=== PATIENT | female | born 1935 | race Caucasian/White ===

== ENCOUNTER 2017-04-08 20:36 | Emergency (ER) | payer OTHER ==
[~2017-04-08] VITALS: Ht 162.6 cm; Wt 67.5 kg
[~2017-04-08 20:36] MED LIST: ASPEC325 PO; CALC-258 PO; CARV25TA2 PO; CLB200 PO; DIGO0.1216 PO; DIGO0.1267 PO; FURO20TA PO; HYDR-5688 PO; LEVO25TA PO; LOSA50TA6 PO; LPT/40 PO; MESA0.37 PO; POTA1TAB97 PO; SNK PO
[2017-04-08 20:48] VITALS: TEMP 36.9; Ht 162.6 cm; Wt 67.5 kg
[2017-04-08] MEDS ORDERED: DOXY100C41 PO (22:20)
[2017-04-08] MEDS ORDERED: DOXYCYCLINE HYCLATE 100 MG CAP PO STA (22:22)
--- NOTE | 2017-04-08 22:22 | EMERGENCY ROOM VISIT NOTE ---
History Report prepared by Blu: Zulma Henely Under the Supervision of: Dr. Kayden Walsh D.O. First contact with patient: 21:48 Chief Complaint: RASH Stated Complaint: HIVES ON BOTH ARMS History of Present Illness The patient is a 81 year old female who presents to the Emergency Room with complaints of a constant rash beginning today. The patient states that she has red spots on both of her arms near her elbows. She notes that she had a tick on her arm two days ago and her dug it out of her arm as it was stuck. She reports that it was there for 30 minutes. She complains of itchiness. She denies any fleas at home, pets, and new medication. Source of History: patient Onset: today Position: arm (bilateral) Quality: other (rash) Timing: constant Note: Pt has itchiness. Review of Systems See HPI for pertinent positives & negatives. A total of 10 systems reviewed and were otherwise negative. Past Medical & Surgical Medical Problems: (1) Cataract Family History No pertinent family history stated. Social History Smoking Status: Never Smoker Marital Status: Housing Status: lives with significant other Occupation Status: retired Current/Historical Medications Scheduled Aspirin (Aspirin), 325 MG PO BID Atorvastatin (Lipitor), 40 MG PO QPM Calcium Carbonate-Cholecalcife (Calcium 600/Vitamin D3), 1 TAB PO BID Carvedilol (Coreg), 25 MG PO BID Celecoxib (Celebrex), 200 MG PO QD@08 Digoxin (Lanoxin), 1 TAB PO UD Digoxin (Lanoxin), 2 TAB PO UD Furosemide (Lasix), 20 MG PO QAM Levothyroxine Sodium (Synthroid), 25 MCG PO QAM Losartan Potassium (Cozaar), 50 MG PO BID Mesalamine (Apriso), 4 CAP PO QAM Potassium Chloride (K-Tab), 20 MEQ PO BID Senna (Senna Lax), 17.2 MG PO HS Scheduled PRN Hydrocodone/Acetaminophen 5MG/325MG ([place] 5MG/325MG), 1-2 TAB PO Q6H PRN for Pain Allergies Coded Allergies: Latex1 -Allergic Contact Dermititis (Unverified Allergy, Unknown, LOCAL SKIN IRRITATION, 04/23/15) Physical Exam Vital Signs Date Time Temp Pulse Resp B/P (MAP) Pulse Ox O2 Delivery O2 Flow Rate FiO2 04/08/17 20:48 36.9 81 18 210/70 93 Room Air Physical Exam CONSTITUTIONAL/VITAL SIGNS: Reviewed / noted above. GENERAL: Non-toxic in appearance. INTEGUMENTARY: Warm, dry, and [place]. At least 8-10 erythematous macules/papules in the bilateral arms and forearms. No abnormal discharge or other rashes. HEAD: Normocephalic. EYES: without scleral icterus or trauma. ENT/OROPHARYNX: clear and moist. LYMPHADENOPATHY/NECK: Is supple without lymphadenopathy or meningismus. RESPIRATORY: Lungs clear and equal. CARDIOVASCULAR: Regular rate and rhythm. GI/ABDOMEN: Soft and nontender. No organomegaly or pulsatile mass. No rebound or guarding. Normal bowel sounds. EXTREMITIES: Warm and well perfused. BACK: No CVA tenderness. NEUROLOGICAL: Intact without focal deficits. PSYCHIATRIC: normal affect. MUSCULOSKELETAL: Normally developed with good muscle tone. Medical Decision & Procedures ED Course 2147: Previous medical records were reviewed. The patient was evaluated in room D3. A complete history and physical examination was performed. 2207: On reevaluation, the patient is doing well. I discussed the results and findings with the patient. She verbalized agreement of the treatment plan. The patient was discharged home. Doxycycline PO given. Medical Decision Differential diagnosis: Etiologies such as contact dermatitis, viral exanthem, urticaria, allergic reaction, Larios-Gerald syndrome, toxic epidermal necrolysis, erythema multiforme, cellulitis, scabies, HSV, varicella, zoster, eczema, staph scalded skin syndrome, fungal infection, as well as others were entertained. Medication Reconciliation: I attest that I have personally reviewed the patient' s current medication list. Blood pressure Screening: Patient was found to have normal blood pressure on screening and does not require follow-up. This is an 81-year-old female who presents to the ED with a chief complaint of a rash on her arms. She had a tick exposure a few days ago and subsequent developed a rash. She states that it is itchy. She denies any other areas of rash on her body. It is on the bilateral arms. It is papular for the most part and primarily in the antecubital areas. Somewhat in the forearms as well. The patient denies any other significant symptoms. Because of exposure today taken no other explanation, the patient be started on doxycycline. She'll be treated for 2 weeks. She was felt to be stable for discharge. She was told to follow-up with her PCP. She was to use Benadryl orally or Benadryl cream for any itching. Impression Primary Impression: Rash rash Critical Care tick exposure Scribe Attestation The scribe's documentation has been prepared under my direction and personally reviewed by me in its entirety. I confirm that the note above accurately reflects all work, treatment, procedures, and medical decision making performed by me. Departure Information Dispostion Home / Self-Care Prescriptions Doxycycline (Monohydrate) (MONODOX) 100 Mg Cap 1 CAP PO BID for 14 Days, #28 CAP Prov: Kayden Walsh D.O. 04/08/17 Referrals Loren Flores DO (PCP) Patient Instructions My [facility] Additional Instructions Doxycycline as prescribed for 2 weeks. Use Benadryl orally or Benadryl cream for itching. Follow-up with your doctor next week for recheck. Return for severe worsening or new symptoms.
[2017-04-08 22:40] VITALS: BP 164/94; PULSE 78; O2SAT 98
[2017-04-08] MEDS ORDERED: ASPI81TA28 PO (22:47)
[2017-04-08] MEDS ORDERED: SOLI10TA2 PO (22:47)
[2017-04-08] MEDS ORDERED: SENN-61 PO (22:47)
[2017-04-08] MEDS ORDERED: LNX125 PO (22:47)
[2017-04-08] MEDS ORDERED: POTA1CAP2 PO (22:47)
[2017-04-08] MEDS ORDERED: ACET325T96 PO (22:47)
== END 2017-04-08 22:41 | disposition home or self-care (01) ==
LOC: C.EDB 20:37 → C.EDD 22:41
DX: R21 Rash and other nonspecific skin eruption (principal); H26.9 Unspecified cataract; Z79.82 Long term (current) use of aspirin; Z79.899 Other long term (current) drug therapy

== ENCOUNTER → 2017-04-13 | Outpatient (CLI) | payer OTHER ==
[~2017-04-13] MED LIST changes: +ACET325T96 PO; -ASPEC325 PO; +ASPI81TA28 PO; -CLB200 PO; -DIGO0.1216 PO; -DIGO0.1267 PO; -HYDR-5688 PO; +LNX125 PO; -MESA0.37 PO; +POTA1CAP2 PO; -POTA1TAB97 PO; +SENN-61 PO; -SNK PO; +SOLI10TA2 PO
[2017-04-13 18:16] LABS: LYME DISEASE AB IGG NEG (NEG); LYME DISEASE AB IGM NEG (NEG)
== END | disposition home or self-care (01) ==
LOC: C.LABPBG 13:26
PROVIDERS: ATTEND Nurse Practitioner Family
DX: R21 Rash and other nonspecific skin eruption (principal)

== ENCOUNTER → 2018-02-16 | Outpatient (CLI) | payer OTHER ==
[~2018-02-16] MED LIST changes: +ACET-1693 PO; -ACET325T96 PO
[2018-02-16 12:54] LABS: HEMOGLOBIN A1C 5.9 % (4.5-5.6)
[2018-02-16 12:56] LABS: ALBUMIN 3.6 gm/dl (3.4-5.0); ALT/SGPT 24 U/L (12-78); BLOOD UREA NITROGEN 19 mg/dl (7-18); CALCIUM 8.8 mg/dl (8.5-10.1); CARBON DIOXIDE 25 mmol/L (21-32); CHOLESTEROL 130 mg/dl (0-200); CREATININE 0.81 mg/dl (0.60-1.20); GLUCOSE,FASTING 105 mg/dl (70-99); POTASSIUM 4.3 mmol/L (3.5-5.1); SODIUM 141 mmol/L (136-145)
[2018-02-16 12:57] LABS: HEMATOCRIT 44.5 % (37-47); MEAN CELL VOLUME 86.9 fL (80-100); MEAN CORPUSCULAR HEMOGLOBIN 29.3 pg (25-34); MEAN CORPUSCULAR HGB CONC 33.7 g/dl (32-36); MEAN PLATELET VOLUME 9.9 fL (7.4-10.4); PLATELET COUNT 188 K/uL (130-400); RED CELL DISTRIBUTION WIDTH CV 14.7 % (11.5-14.5); RED CELL DISTRIBUTION WIDTH SD 47.2 fL (36.4-46.3); WHITE BLOOD COUNT 5.77 K/uL (4.8-10.8)
[2018-02-16 13:04] LABS: ALKALINE PHOSPHATASE 77 U/L (45-117); AST/SGOT 21 U/L (15-37); LDL CHOLESTEROL (DIRECT) 81 mg/dl; TOTAL PROTEIN 7.1 gm/dl (6.4-8.2)
== END | disposition home or self-care (01) ==
LOC: C.LABPBG 09:16
PROVIDERS: ATTEND Internal Medicine Cardiovascular Disease
DX: Z51.81 Encounter for therapeutic drug level monitoring (principal); I10 Essential (primary) hypertension; Z82.49 Family history of ischemic heart disease and other diseases of the circulatory system; Z79.899 Other long term (current) drug therapy

== ENCOUNTER 2020-09-15 08:12 | Observation (INO) ==
[2020-09-15 09:04] LABS: Basophils # (auto) 0.04 K/uL (0-0.2); Basophils % (auto) 0.4 %; Eosinophils # (auto) 0.31 K/uL (0-0.5); Eosinophils % (auto) 2.9 %; Hematocrit (blood only) 39.6 % (37-47); Hemoglobin 12.9 g/dL (12.0-16.0); Immature Granulocytes # (auto) 0.03 K/uL (0.00-0.02); Immature Granulocytes % (auto) 0.3 %; Lymphocytes # (auto) 1.24 K/uL (1.2-3.4); Lymphocytes % (auto) 11.7 %; Mean Corpuscular Hemoglobin 28.8 pg (25-34); Mean Corpuscular Hgb Conc 32.6 g/dL (32-36); Mean Corpuscular Volume 88.4 fL (80-100); Mean Platelet Volume 9.9 fL (7.4-10.4); Monocytes # (auto) 0.73 K/uL (0.11-0.59); Monocytes % (auto) 6.9 %; Neutrophils # (auto) 8.28 K/uL (1.4-6.5); Neutrophils % (auto) 77.8 %; Platelet Count 188 K/uL (130-400); RDW Coefficient of Variation 13.8 % (11.5-14.5); RDW Standard Deviation 44.9 fL (36.4-46.3); Red Blood Count 4.48 M/uL (4.2-5.4); White Blood Count 10.63 K/uL (4.8-10.8)
--- NOTE | 2020-09-15 09:12 | Emergency Department Note ---
Impression & Plan Breathlessness, Acute exacerbation of CHF (congestive heart failure), Elevated troponin I level ED Provider Note .Provider: Navi Walton MD DATE OF SERVICE:09/15/2020 CHIEF COMPLAINT: Shortness of breath HISTORY OF PRESENT ILLNESS: Patient is a 85-year-old female with past medical history of CHF, pulmonary hypertension, hypothyroidism, hyperlipidemia, hypertension presenting today from home due to worsening shortness of breath. Patient states over the past 2 to 3 days she has had some worsening shortness of breath but only in the morning and then throughout the day it seems to get l ittle bit better. No history of leg swelling or weight gain. States slight cough but nothing significant. Denies any chest tightness or chest pain. Denies fevers. Denies other URI symptoms. Patient states seem to persist limited day and was impacting her ability ground so came here for evaluation. She does not feel similar to prior episode of fluid overload. Denies sick contacts to her knowledge. Patient states she gets around her house but does not travel and has been limiting contacts at this point. States compliance with home medications including Lasix. REVIEW OF SYSTEMS: A total of 10 review of systems was obtained and negative except as stated above in the HPI. PAST MEDICAL HISTORY: As noted above MEDICATIONS: Reviewed home medications including digoxin and Lasix SOCIAL HISTORY: Lives at home, non-smoker PHYSICAL EXAM: GENERAL: alert and oriented in no acute distress on stretcher Head: normocephalic and atraumatic EYES: No injection, discharge or icterus. NECK: Trachea midline. Supple. ENT: Mucous membranes pink and moist. LUNGS: Airway patent. No retractions but mildly tachypneic in the low mid 20s. Breath sounds clear with good air entry bilaterally anteriorly HEART: Regular rate and rhythm. No chest wall tenderness ABDOMEN: Soft and non-tender, without guarding or rebound. SKIN: Acyanotic, warm, dry, without rashes EXTREMITIES: Without swelling, tenderness or deformity NEUROLOGICAL: No focal deficits. No aphasia. No facial droop or slurred speech. EK bpm a sinus rhythm with first-degree AV block and a large left bundle branch block. Left axis is noted. Compared to previous from November [id number] no longer having inferior and lateral T wave inversions. CONTINUOUS CARDIAC MONITORING: was ordered and showed a heart rate of 74 bpm in first-degree AV block with left bundle branch block Patient's laboratory studies and imaging reviewed. Differential includes Reactive airway disease, pneumonia, pneumothorax, COPD, CHF, infections, cardiac ischemia, pulmonary embolism, musculoskeletal, gastrointestinal, as well as other pathologies. IMPRESSION/MEDICAL DECISION MAKING: Patient presents with shortness of breath without other significant URI symptoms. Is noted to be hypertensive upon arrival but denies any pain complaints. No focal deficits for CVA. Lower suspicion for coronavirus initially. States compliance with her home medications and denies significant weight gain. Chest x-ray does note per radiology interpretation some mild pulmonary edema and trace effusions as well as a right perihilar opacity of unclear etiology. I doubt this represents acute aortic dissection again she is without pain at this time. Renal function is stable there is no significant electrolyte abnormality. No leukocytosis or anemia is noted. Benign abdomen I doubt acute intra-abdominal process such as pancreatitis or cholecystitis. Digoxin level was sent in addition to troponin and proBNP. EKG without STEMI/Sgarbossa criteria but note less ST wave inversion compared to previous. Patient does have a positive troponin but no chest pain. Mild proBNP elevation. D-dimer is positive and sent for CT scan to exclude PE. This was negative for PE. Digoxin is therapeutic. Given some aspirin given the elevated troponin as well as Lasix for diuresis & hopefully this helps both with her breathing, fluid overload, as well as some of her hypertension. Her shortness of breath is likely 2/2 fluid overload and pulmonary edema. Given the elevated troponin no prior baseline recommended the patient be further observed here in the hospital and the patient was in agreement. The hospitalist was contacted. DIAGNOSIS: Shortness of breath, CHF exacerbation, elevated troponin, hypertension DISPOSITION: Hospitalist will evaluate Patient was agreeable with this plan. Past Med/Surg History Medical History Benign essential hypertension Cataract Chronic systolic heart failure Dilated cardiomyopathy Hyperlipidemia Hypothyroidism Left bundle-branch block Lumbar stenosis with neurogenic claudication (11/26/14) Microscopic hematuria Mitral valve insufficiency Osteoarthritis Prediabetes Pulmonary hypertension Ulcerative colitis Urinary incontinence Venous insufficiency Surgical History History of bladder suspension procedure History of inguinal hernia repair B/l History of ovarian cystectomy History of spinal arthrodesis LUMBAR DECOMPRESSION WITH FUSION; DR. DREW History of total hip replacement (04/23/15) ONSET:[id number] R HIP History of total knee arthroplasty (2006) RIGHT KNEE S/P hysterectomy Family History Mother Myocardial infarction Denies family history of Ovarian cancer Prostate cancer Breast cancer Colorectal cancer Social History Smoking Status: Former smoker Second Hand Exposure: No; Hx Alcohol Use: No Hx Substance Use: No Preferred Language: Lithuanian Communication Ability: Effective Visual Impairment: No Limitations Hearing Ability: Normal Manager Support Required: No Beliefs That Will Affect Care: None marital status: Current Living Situation: Spouse current occupational status: retired Other Information That Helps Us Care for You: No Feels Safe at Home: Yes Safety Concerns: Feels Safe At This Time caffeine: Yes (coffee x 1 cup daily.) during the past year weight has: remained stable Dental Care, Regularly: Yes Physical Activity Frequency: Does not Exercise Seatbelt Use: always Sunscreen Use: No Assistive Devices: Cane and Glasses Allergies Allergies Allergy/AdvReac Type Severity Reaction Status Date / Time latex Allergy Unknown LOCAL SKIN Unverified 09/15/20 08:38 IRRITATION Home Meds Home Medications Medication Instructions Recorded Confirmed calcium carbonate-vitamin D3 1 tab PO BID 09/25/18 09/15/20 [Calcium 600 + D(3)] aspirin [Aspirin Low-Strength] 81 mg PO DAILY 09/15/20 09/15/20 Previous Rx's Medication Instructions Recorded atorvastatin 40 mg tablet 40 mg PO DAILY #90 tab 04/02/20 alendronate 70 mg tablet 70 mg PO WEEKLY #12 tab MDD 70mg 05/14/20 weekly losartan 25 mg tablet 50 mg PO BID #360 tab 06/18/20 carvedilol 25 mg tablet 25 mg PO BID #180 tab 06/24/20 furosemide 20 mg tablet 20 mg PO DAILY #90 tab 06/24/20 levothyroxine 25 mcg tablet 25 mcg PO DAILY #90 tab 07/31/20 digoxin 125 mcg (0.125 mg) tablet See Rx Instructions .ROUTE 09/05/20 .COMPLEX #90 tablet docusate sodium 100 mg capsule 100 mg PO BID #180 cap 09/05/20 Results & Data (ED) Vital Signs Vital Signs - 24 hr 09/15/20 08:16 09/15/20 08:30 09/15/20 08:33 Temperature 36.5 C Temperature Source Oral Pulse Rate 70 Pulse Rate [Finger] 75 Pulse Rhythm [Finger] Regular Pulse Strength [Finger] Normal Respiratory Rate 22 20 Respiratory Effort / Characteristics Short of Breath Spontaneous Short of Breath Non-Labored Spontaneous Respiratory Depth Normal Normal Respiratory Pattern Regular Regular Blood Pressure 193/74 H Blood Pressure [Right Arm] 212/100 H Blood Pressure Mean 113 Blood Pressure Mean [Right Arm] 137 Blood Pressure Position Sitting Blood Pressure Position [Right Arm] Lying Pulse Oximetry 94 94 Oxygen Delivery Method Room Air Room Air Room Air Sepsis Recent Fever Within 48 Hours No Sepsis New/Unexplained Change in Mental Status N/A Sepsis Action Taken by Nursing No Action Required 09/15/20 08:36 09/15/20 10:33 09/15/20 10:50 Temperature Temperature Source Pulse Rate Pulse Rate [Finger] 77 75 Pulse Rhythm [Finger] Regular Regular Pulse Strength [Finger] Normal Normal Respiratory Rate 22 24 Respiratory Effort / Characteristics Non-Labored Spontaneous Non-Labored Spontaneous Respiratory Depth Normal Normal Respiratory Pattern Regular Regular Blood Pressure Blood Pressure [Right Arm] 201/92 H Blood Pressure Mean Blood Pressure Mean [Right Arm] 128 Blood Pressure Position Blood Pressure Position [Right Arm] Lying Pulse Oximetry 95 93 94 Oxygen Delivery Method Room Air Room Air Room Air Sepsis Recent Fever Within 48 Hours Sepsis New/Unexplained Change in Mental Status Sepsis Action Taken by Nursing Laboratory Data Result diagrams: 09/15/20 08:40 09/15/20 08:40 Lab Results 09/15/20 09/15/20 09/15/20 Range/Units 08:40 08:40 08:40 WBC 10.63 (4.8-10.8) K/uL RBC 4.48 (4.2-5.4) M/uL Hgb 12.9 (12.0-16.0) g/dL Hct 39.6 (37-47) % MCV 88.4 (80-100) fL MCH 28.8 (25-34) pg MCHC 32.6 (32-36) g/dL RDW Std Deviation 44.9 (36.4-46.3) fL RDW Coeff of Tonya 13.8 (11.5-14.5) % Plt Count 188 (130-400) K/uL MPV 9.9 (7.4-10.4) fL Immature Gran % (Auto) 0.3 % Neut % (Auto) 77.8 % Lymph % (Auto) 11.7 % [place] % (Auto) 6.9 % Eos % (Auto) 2.9 % Baso % (Auto) 0.4 % Neut # (Auto) 8.28 H (1.4-6.5) K/uL Lymph # (Auto) 1.24 (1.2-3.4) K/uL [place] # (Auto) 0.73 H (0.11-0.59) K/uL Eos # (Auto) 0.31 (0-0.5) K/uL Baso # (Auto) 0.04 (0-0.2) K/uL Immature Gran # (Auto) 0.03 H (0.00-0.02) K/uL PT 10.9 (9.0-12.0) Seconds INR 1.0 (0.9-1.1) APTT 25.4 (21.0-31.0) Seconds PTT Ratio 0.9 D-Dimer 1240 H* (0-500) ug/L FEU Sodium 142 (136-145) mmol/L Potassium 3.7 (3.5-5.1) mmol/L Chloride 109 H (98-107) mmol/L Carbon Dioxide 28 (21-32) mmol/L Anion Gap 5.0 (3-11) BUN 18 (7-18) mg/dl Creatinine 1.01 (0.6-1.2) mg/dl Est Cr Clr Drug Dosing 39.1 ml/min Est GFR ( Amer) 59.2 Est GFR (Non-Af Amer) 51.1 BUN/Creatinine Ratio 18.0 (10-20) Glucose 137 H (70-99) mg/dl Calcium 9.6 (8.5-10.1) mg/dl Magnesium 2.2 (1.8-2.4) mg/dl Total Bilirubin 0.9 (0.2-1) mg/dl AST 25 (15-37) U/L ALT 30 (12-78) U/L Alkaline Phosphatase 59 (45-117) U/L Troponin I 0.220 H* (0-0.045) ng/ml NT-Pro-B Natriuret Pep 2376 H (0-1800) pg/ml Total Protein 7.3 (6.4-8.2) gm/dl Albumin 3.5 (3.4-5.0) gm/dl Globulin 3.8 (2.5-4.0) gm/dl Albumin/Globulin Ratio 0.9 (0.9-2) Urine Color Urine Appearance (Clear) Urine pH (4.5-7.5) Ur Specific [place] (1.000-1.030) Urine Protein (Negative) Urine Glucose (UA) (Negative) Urine Ketones (Negative) Urine Blood (Negative) Urine Nitrite (Negative) Urine Bilirubin (Negative) Urine Urobilinogen (Negative) Ur Leukocyte Esterase (Negative) Urine WBC (Auto) (0-5) /hpf Urine RBC (Auto) (0-4) /hpf U Hyaline Cast (Auto) (0-5) /lpf U Epithel Cells (Auto) (0-5) /lpf Urine Bacteria (Auto) (Negative) Digoxin (0.8-2.0) ng/ml 09/15/20 09/15/20 Range/Units 08:40 11:39 WBC (4.8-10.8) K/uL RBC (4.2-5.4) M/uL Hgb (12.0-16.0) g/dL Hct (37-47) % MCV (80-100) fL MCH (25-34) pg MCHC (32-36) g/dL RDW Std Deviation (36.4-46.3) fL RDW Coeff of Tonya (11.5-14.5) % Plt Count (130-400) K/uL MPV (7.4-10.4) fL Immature Gran % (Auto) % Neut % (Auto) % Lymph % (Auto) % [place] % (Auto) % Eos % (Auto) % Baso % (Auto) % Neut # (Auto) (1.4-6.5) K/uL Lymph # (Auto) (1.2-3.4) K/uL [place] # (Auto) (0.11-0.59) K/uL Eos # (Auto) (0-0.5) K/uL Baso # (Auto) (0-0.2) K/uL Immature Gran # (Auto) (0.00-0.02) K/uL PT (9.0-12.0) Seconds INR (0.9-1.1) APTT (21.0-31.0) Seconds PTT Ratio D-Dimer (0-500) ug/L FEU Sodium (136-145) mmol/L Potassium (3.5-5.1) mmol/L Chloride (98-107) mmol/L Carbon Dioxide (21-32) mmol/L Anion Gap (3-11) BUN (7-18) mg/dl Creatinine (0.6-1.2) mg/dl Est Cr Clr Drug Dosing ml/min Est GFR ( Amer) Est GFR (Non-Af Amer) BUN/Creatinine Ratio (10-20) Glucose (70-99) mg/dl Calcium (8.5-10.1) mg/dl Magnesium (1.8-2.4) mg/dl Total Bilirubin (0.2-1) mg/dl AST (15-37) U/L ALT (12-78) U/L Alkaline Phosphatase (45-117) U/L Troponin I (0-0.045) ng/ml NT-Pro-B Natriuret Pep (0-1800) pg/ml Total Protein (6.4-8.2) gm/dl Albumin (3.4-5.0) gm/dl Globulin (2.5-4.0) gm/dl Albumin/Globulin Ratio (0.9-2) Urine Color Yellow Urine Appearance Clear (Clear) Urine pH 7.5 (4.5-7.5) Ur Specific [place] 1.023 (1.000-1.030) Urine Protein Negative (Negative) Urine Glucose (UA) Negative (Negative) Urine Ketones Negative (Negative) Urine Blood Negative (Negative) Urine Nitrite Negative (Negative) Urine Bilirubin Negative (Negative) Urine Urobilinogen Negative (Negative) Ur Leukocyte Esterase Negative (Negative) Urine WBC (Auto) 1-5 (0-5) /hpf Urine RBC (Auto) 0-4 (0-4) /hpf U Hyaline Cast (Auto) 0 (0-5) /lpf U Epithel Cells (Auto) 5-10 H (0-5) /lpf Urine Bacteria (Auto) Negative (Negative) Digoxin 1.0 (0.8-2.0) ng/ml Administered Medications Discontinued Medications Aspirin (Aspirin 81 Mg Chew) 243 mg PO NOW STA Stop: 09/15/20 11:05 Last Admin: 09/15/20 11:29 Dose: 324 mg Documented by: [id number] Furosemide (Furosemide 40 Mg/4 Ml Vial) 40 mg IV NOW STA Stop: 09/15/20 11:05 Last Admin: 09/15/20 11:29 Dose: 40 mg Documented by: [id number] Ioversol (Optiray 320 125ml) 120 ml IV ONCE ONE Stop: 09/15/20 10:35 Last Admin: 09/15/20 10:35 Dose: 120 ml Documented by: [id number] Discharge Plan Visit Data Chief Complaint: Respiratory Problems Stated Complaint: HARD TO BREATH ED Provider: Navi Walton Discharge Problem: Breathlessness, Acute exacerbation of CHF (congestive heart failure), Elevated troponin I level Patient Disposition: Admitted As Inpatient Discharge Instructions Interventions: ED Discharge Assessment Last Done: 09/15/20 13:22 Discharge Problem: Acute exacerbation of CHF (congestive heart failure) Qualifiers: Heart failure type: systolic Qualified Code(s): I50.23 - Acute on chronic systolic (congestive) heart failure
[2020-09-15 09:19] LABS: Partial Thromboplastin Ratio 0.9; Partial Thromboplastin Time 25.4 Seconds (21.0-31.0); Prothrombin Time 10.9 Seconds (9.0-12.0)
--- NOTE | 2020-09-15 09:20 | XRay Report ---
XR chest 1V portable CLINICAL HISTORY: Dyspnea COMPARISON STUDY: Chest radiograph November 07, 2014. FINDINGS: Moderate cardiac megaly is noted. There is no pneumothorax. There are trace bilateral pleur al effusions. Interstitial thickening is noted. There are bibasilar opacities. Patient is rotated. Ri ght perihilar opacity is noted. IMPRESSION: 1. Interstitial thickening suggestive of mild pulmonary edema. 2. Trace bilateral pleural effusions. Mild bibasilar opacities. 3. Right perihilar opacity. This may reflect airspace opacity or pulmonary vasculature however underl jatinder mass or lymphadenopathy cannot be excluded. Radiographic follow-up is recommended. ACT 112: Negative or not required by law. Electronically signed by: Titus Leon M.D. 09/15/2020 9:18 AM
[2020-09-15 09:21] LABS: Albumin Level 3.5 gm/dl (3.4-5.0); Calcium 9.6 mg/dl (8.5-10.1); Creatinine Clr Calc Pharmacy 39.1 ml/min; Est GFR (African American) 59.2; Est GFR (Non-African American) 51.1; Magnesium 2.2 mg/dl (1.8-2.4); Potassium 3.7 mmol/L (3.5-5.1)
[2020-09-15 09:36] LABS: D Dimer 1240 ug/L FEU (0-500)
[2020-09-15 09:40] LABS: Albumin Globulin Ratio 0.9 (0.9-2); Bilirubin,Total 0.9 mg/dl (0.2-1); Globulin 3.8 gm/dl (2.5-4.0); Total Protein 7.3 gm/dl (6.4-8.2); Troponin I 0.22 ng/ml (0-0.045)
[2020-09-15] MEDS ORDERED: OPTIRAY 320 125ml IV ONE (10:34)
--- NOTE | 2020-09-15 10:57 | CT Scan Report ---
CT ANGIOGRAPHY OF THE CHEST, PULMONARY EMBOLUS PROTOCOL CLINICAL HISTORY: PE, +dimer, sob COMPARISON STUDY: Chest radiograph November 07, 2014 and September 15, 2020. TECHNIQUE: Following IV administration of 120 mL of Optiray-320, helical axial images of the chest we re obtained utilizing the pulmonary embolus protocol. Maximal intensity projections and sagittal and coronal reformats were viewed on an independent 3D workstation. IV contrast was administered withou t complication. Automated exposure control was utilized for the study. A dose lowering technique wa s utilized adhering to the principles of ALARA. CT DOSE: 272.91 mGy.cm FINDINGS: No pulmonary emboli are identified. The heart is moderately enlarged. There is no pericard ial effusion. Caliber of the thoracic aorta is within normal limits. No pneumothorax is present. Ther e are small bilateral pleural effusions. Interlobular septal thickening is noted. There are dependent groundglass opacities within the lungs. There is no pneumothorax. There are multiple enlarged medias tinal and right hilar lymph nodes. Index right hilar lymph node on image 156 of 270 measures 1.5 cm i n short axis diameter. Index high right paratracheal/paraesophageal lymph node image 237 measures 1.9 x 1.6 cm. Note is made of a 6 mm calculus within the upper pole of the left kidney. Upper abdomen is otherwise unremarkable. There is possible mild splenomegaly, partially imaged on this exam. IMPRESSION: 1. No pulmonary emboli identified. 2. Moderate interstitial pulmonary edema with small bilateral pleural effusions. 3. Groundglass opacities which favor atelectasis. 4. Multiple mildly enlarged mediastinal and right hilar lymph nodes. These nodes are nonspecific and may be related to pulmonary edema however a follow-up chest CT in 3 months is recommended. 5. Moderate cardiomegaly. 6. 6 mm left renal calculus. ACT 112: Negative or not required by law. Electronically signed by: Titus Leon M.D. 09/15/2020 10:56 AM
[2020-09-15] MEDS ORDERED: ASPIRIN 81 MG CHEW PO STA (11:04)
[2020-09-15] MEDS ORDERED: FUROSEMIDE 40 MG/4 ML VIAL IV STA (11:04)
[2020-09-15 11:50] LABS: Appearance Urine Clear (Clear); Bacteria Urine Automated Negative (Negative); Bilirubin Urine Negative (Negative); Blood Urine Negative (Negative); Cast Urine Automated 0 /lpf (0-5); Color Urine Yellow; Glucose Urine UA Negative (Negative); Ketones Urine Negative (Negative); Leukocyte Esterase Urine Negative (Negative); Nitrite Urine Negative (Negative); RBC Urine Automated 0-4 /hpf (0-4); Specific Gravity Urine 1.023 (1.000-1.030); Urobilinogen Urine Negative (Negative); pH Urine 7.5 (4.5-7.5)
[2020-09-15 11:57] LABS: Protein Urine Negative (Negative); Sulfosalicylic Acid Urine Negative (Negative)
--- NOTE | 2020-09-15 12:00 | History & Physical Report ---
Date of Service September 15, 2020 Assessment & Plan (1) Acute exacerbation of CHF (congestive heart failure): Noted on CXR, CTA chest hypoxic with ambulation in ED Given lasix 40mg IV x1 in ED Repeat 20mg IV dosing in AM BNP elevated Home lasix 20mg QD and spironolactone 25mg QD, compliant Does not appear to follow with CHF clinic, c/s pending Last ECHO 03/2019 with EF 35-40%, repeat pending (2) Elevated troponin I level: Likely demand ischemia Initial trop 0.22, serials pending EKG noted Home aspirin 81mg use Nuclear stress 04/2019 with EF 37% and severe hypokinesis (3) 1st degree AV block: Asx with this Monitor (4) Pulmonary hypertension: Noted prior (5) Chronic systolic heart failure: continue home meds CHF clinic c/s (6) Prediabetes: A1c 6.1 04/18/20, will not repeat at this time No current meds (7) Left bundle-branch block: Noted on EKG, hx of same (8) Hypothyroidism: continue home meds (9) Hyperlipidemia: continue home meds (10) Dilated cardiomyopathy: Noted (11) Benign essential hypertension: continue home meds Hold digoxin overnight (12) Ulcerative colitis: No current sx (13) D-dimer, elevated: Likely relate to above CTA chest neg for PE (14) Abnormal CT scan, chest: Abnormal R hilar LN Recs for repeat in 3 months I did discuss with pt and daughter in ED (15) Urinary incontinence: continue home meds UA neg (16) DVT prophylaxis: SCDs given OBS status History of Present Illness Primary Care Provider: Loren Flores, DO 85 y/o F c/o SOB. SOB has been worse when getting OOB in AM, but gets better with moving around. This has been happening the last few days, however, this AM it did not improve. She notes no self noted weight gain. Pt denies fever, chest pain, abd pain, n/v/c/d, LE pain. Has baseline LE swelling. No chest pain. Can lie flat. Sleeps on side without issues. Chronic external burning with urination, this is not new. s/p lasix 40mg IV in ED. She states she is still getting SOB when moving OOB to use the restroom. She does not feel this has improved. Pt states she took all of her AM meds today EXCEPT for her lasix. Allergies Allergy/AdvReac Type Severity Reaction Status Date / Time latex Allergy Unknown LOCAL SKIN Unverified 09/15/20 08:38 IRRITATION Home Medications Home Medications Medication Instructions Recorded Confirmed Type calcium carbonate-vitamin D3 1 tab PO BID 09/25/18 09/15/20 History [Calcium 600 + D(3)] atorvastatin 40 mg tablet 40 mg PO DAILY #90 tab 04/02/20 09/15/20 Rx alendronate 70 mg tablet 70 mg PO WEEKLY #12 tab MDD 70mg 05/14/20 09/15/20 Rx weekly losartan 25 mg tablet 50 mg PO BID #360 tab 06/18/20 09/15/20 Rx carvedilol 25 mg tablet 25 mg PO BID #180 tab 06/24/20 09/15/20 Rx furosemide 20 mg tablet 20 mg PO DAILY #90 tab 06/24/20 09/15/20 Rx levothyroxine 25 mcg tablet 25 mcg PO DAILY #90 tab 07/31/20 09/15/20 Rx digoxin 125 mcg (0.125 mg) tablet See Rx Instructions .ROUTE 09/05/20 09/15/20 Rx .COMPLEX #90 tablet docusate sodium 100 mg capsule 100 mg PO BID #180 cap 09/05/20 09/15/20 Rx aspirin [Aspirin Low-Strength] 81 mg PO DAILY 09/15/20 09/15/20 History Past Med/Surg History Medical History Benign essential hypertension Cataract Chronic systolic heart failure Dilated cardiomyopathy Hyperlipidemia Hypothyroidism Left bundle-branch block Lumbar stenosis with neurogenic claudication (11/26/14) Microscopic hematuria Mitral valve insufficiency Osteoarthritis Prediabetes Pulmonary hypertension Ulcerative colitis Urinary incontinence Venous insufficiency Surgical History History of bladder suspension procedure History of inguinal hernia repair B/l History of ovarian cystectomy History of spinal arthrodesis LUMBAR DECOMPRESSION WITH FUSION; DR. DREW History of total hip replacement (04/23/15) ONSET:[id number] R HIP History of total knee arthroplasty (2006) RIGHT KNEE S/P hysterectomy Family History Mother Myocardial infarction Denies family history of Ovarian cancer Prostate cancer Breast cancer Colorectal cancer Social History Smoking Status: Former smoker Second Hand Exposure: No; Hx Alcohol Use: No Hx Substance Use: No Preferred Language: Kazakh Communication Ability: Effective Visual Impairment: No Limitations Hearing Ability: Normal Reconciliation Coordinator Required: No Beliefs That Will Affect Care: None marital status: Current Living Situation: Spouse current occupational status: retired Other Information That Helps Us Care for You: No Feels Safe at Home: Yes Safety Concerns: Feels Safe At This Time caffeine: Yes (coffee x 1 cup daily.) during the past year weight has: remained stable Dental Care, Regularly: Yes Physical Activity Frequency: Does not Exercise Seatbelt Use: always Sunscreen Use: No Assistive Devices: Cane and Glasses Review of Systems Review of Systems: Pertinent positives and negatives reviewed in HPI--all others negative Physical Exam Constitutional: WD/WN, vitals as above Eyes: normal visual wright by confrontation and + anicteric sclerae Neck: normal visual inspection and trachea midline Respiratory: normal respiratory effort; no respiratory distress Auscultation: + crackles; no wheezes Cardiovascular: Rate/Rhythm: regular rate and regular rhythm Extremities: + edema (1+ b/l LE) Gastrointestinal (Abdomen): Inspection/Auscultation: abdomen not distended Percussion/Palpation: abdomen soft; abdomen nontender Musculoskeletal: Head/Neck/Chest: normocephalic and head atraumatic peripheral pulses intact Skin: no rashes, warm and dry Neurologic: awake; not confused Speech / Cognition: normal speech Psychiatric: A+Ox3, euthymic affect Results & Data Results & Data ([facility]) Vital Signs (Past 12 Hours) Vital Signs Temp Pulse Pulse Resp BP BP Pulse Ox 09/15/20 10:50 75 24 201/92 H 94 09/15/20 10:33 77 22 93 09/15/20 08:36 95 09/15/20 08:33 75 20 212/100 H 94 09/15/20 08:16 36.5 C 70 22 193/74 H 94 Diagnostic Findings CXR: mild pulm edema, perihilar opacity CTA: neg for PE Noted for small b/l pleural effusions R hilar LN inflammation 6mm L sided renal stone Code Status & VTE Plan Code Status Full code VTE Prophylaxis Plan VTE Prophylaxis will be ordered: Yes PG Care Time/CCT Total # of Minutes Spent Total Time Spent with Patient: Total time spent is greater than 50% in coordination of care (as documented) at patient's floor/unit and/or counseling patient: Coding Level of Care Code 62279 OBS Care - Level 3 Diagnoses Acute exacerbation of CHF (congestive heart failure) I50.23 Heart failure type: systolic Elevated troponin I level R77.8 1st degree AV block I44.0 Pulmonary hypertension I27.20 Chronic systolic heart failure I50.22 Prediabetes R73.03 Left bundle-branch block I44.7 Hypothyroidism E03.9 Hyperlipidemia E78.5 Dilated cardiomyopathy I42.0 Benign essential hypertension I10 Ulcerative colitis K51.90 D-dimer, elevated R79.[address] scan, chest R93.89 Urinary incontinence R32 DVT prophylaxis Z29.9 (1) Acute exacerbation of CHF (congestive heart failure) Heart failure type: systolic Qualified Code(s): I50.23 - Acute on chronic systolic (congestive) heart failure
--- NOTE | 2020-09-15 12:47 | Electrocardiogram Report ---
Test Reason : Blood Pressure : / mmHG Vent. Rate : 070 BPM Atrial Rate : 070 BPM P-R Int : 244 ms QRS Dur : 166 ms QT Int : 438 ms P-R-T Axes : 069 -39 125 degrees QTc Int : 473 ms Poor data quality, interpretation may be adversely affected Sinus rhythm with 1st degree A-V block Left axis deviation Left bundle branch block Abnormal ECG When compared with ECG of 07-NOV-2014 11:47, QRS axis Shifted left Confirmed by Jabier Carr ([id number]) on 09/15/2020 12:46:57 PM Referred By: REFERRED SELF Confirmed By:Jabier Carr
[2020-09-15] MEDS ORDERED: ICU PROTOCOL FOR HYPERGLYCEMIA PRN (13:44)
[2020-09-15] MEDS ORDERED: ACETAMINOPHEN 325 MG TAB PO PRN (13:44)
[2020-09-15] MEDS ORDERED: MAGNESIUM HYDROXIDE SUSP 30 ML UDC PO PRN (13:44)
[2020-09-15] MEDS ORDERED: ONDANSETRON INJ 2 MG/ML 2 ML VIAL IV PRN (13:44)
[2020-09-15] MEDS: CALCIUM 600MG + VIT D 400 IU TAB PO SCH (19:56)
[2020-09-15] MEDS: LOSARTAN POTASSIUM 50 MG TAB PO SCH (19:56)
[2020-09-15] MEDS: DOCUSATE SODIUM 100 MG CAP PO SCH (20:37)
[2020-09-15] MEDS: carvediloL 25 MG TAB PO SCH (20:37)
[2020-09-16] MEDS ORDERED: LEVOTHYROXINE SODIUM 25 MCG TABLET PO SCH (06:30)
[2020-09-16] MEDS: CALCIUM 600MG + VIT D 400 IU TAB PO SCH (08:33)
[2020-09-16] MEDS: LOSARTAN POTASSIUM 50 MG TAB PO SCH (08:33)
[2020-09-16] MEDS: carvediloL 25 MG TAB PO SCH (08:34)
[2020-09-16] MEDS ORDERED: ATORVASTATIN 40 MG TAB PO SCH (09:00)
[2020-09-16] MEDS ORDERED: SPIRONOLACTONE 25 MG TAB PO SCH (09:00)
[2020-09-16] MEDS ORDERED: FUROSEMIDE 20 MG in SYRINGE 0 ML IV SCH (09:00)
[2020-09-16] MEDS ORDERED: ASPIRIN 81 MG ECTAB PO SCH (09:00)
[2020-09-16] MEDS ORDERED: FUROSEMIDE 20 MG TAB PO SCH (09:00)
[2020-09-16 09:08] LABS: BUN Creatinine Ratio 22.3 (10-20); Calcium 9.9 mg/dl (8.5-10.1); Creatinine Clr Calc Pharmacy 37.8 ml/min; Est GFR (African American) 59.2; Est GFR (Non-African American) 51.1; Potassium 3.5 mmol/L (3.5-5.1)
[2020-09-16] MEDS: DOCUSATE SODIUM 100 MG CAP PO SCH (09:47)
--- NOTE | 2020-09-16 10:41 | XCELERA ---
[id number]
--- NOTE | 2020-09-16 15:00 | Heart Failure Consultation ---
Date of Consultation September 16, 2020 Assessment & Plan (1) Acute exacerbation of CHF (congestive heart failure): (2) Chronic systolic heart failure: (3) Dilated cardiomyopathy: (4) Left bundle-branch block: (5) Pulmonary hypertension: (6) Mitral regurgitation: 1. Acute on Chronic systolic CHF: NYHA Class III. She appears slightly hypervolemic today. She continues to have mild crackles and JVD. Symptomatically she is feeling improved. Continue Lasix 20 mg IV daily today and spironolactone 25 mg daily. Anticipate discharge on her home dose with close follow up. Can take an extra 20 mg Lasix for weight gain, edema, or shortness of breath. Recommend low-sodium diet, <2,000 mg daily. Continue daily STANDING weights. I&Os. We discussed the nature of heart failure and the goals of the program. She is agreeable to participation. 2. Mitral regurgitation: Echo in March of 2019 with mild mitral regurgitation however it had been reported worsen the past. Noted to be severe on today's echo, but also in the setting of hypervolemia. Consider continued monitoring once volume status has been optimized. 3. Nonischemic cardiomyopathy: Patient is on adequate guideline based therapy. Continue carvedilol and losartan as prescribed. Not a candidate for ICD given EF >35%. Could consider transition from Losartan to Entresto during hospital stay vs outpatient. 4. Hypertension: Blood pressure is elevated. Continue current therapy. Continue to optimize volume status. 7. LBBB: Chronic issue. QRS > 140 mm. EF not improved despite medical therapy. Could consider HOSTEL MANAGER. Will discuss with Dr. Middleton/EP as outpatient. 8. Pulmonary hypertension: Pulmonary hypertension likely related to hypervolemia. Diuresis as above. Disposition: Anticipate close follow up with the heart failure program, within 7 days of discharge- arranged for 09/23 at 10:30 am History of Present Illness Attending Physician: Mary Kay Larios DO Mrs. Cooper is a very pleasant 84-year-old female with history significant for dilated, nonischemic cardiomyopathy, nonobstructive CAD, dyslipidemia, hypertension, systolic CHF, left bundle-branch block, and mitral regurgitation. In the past, she was followed by Dr. Sauceda. She now follows with Dr. Middleton. In 2000 she was noted to have reduced LV systolic function and underwent cardiac catheterization in [place]. She was found have nonischemic cardiomyopathy. She was treated with medical therapy. She has had the following studies/procedures: 1. Cardiac catheterization October 2001 at [facility] in [place]: Mild atherosclerotic CAD per records. 2. Echo [facility] 02/15/2017: Global hypokinesis within the left ventricle. EF estimated 35%. At least moderate MR. Moderate TR. Moderate PI. Possible tiny ASD/PFO with minimal srbr-rd-xmost shunting. Moderate pulmonary hypertension. 3. Echo 09/02/[address] Sauceda: Global LV hypokinesis. EF 35-40%. Left atrial dilation. Sclerotic aortic valve. MAC. Moderate to severe MR moderate TR. Tiny to small atrial septal defect with minimal lhvj-hh-yrtah flow. Moderate pulmonary hypertension. RVSP 66. 4. Nuclear stress 03/24/2019: Negative for ischemia. EF 37%. Severe hypokinesis or akinesis of fixed defects. Fixed defects involving base to apical septum, base to mid inferoseptum, base to distal inferior, and mid to apical anteroseptal mendez. 5. Echo 03/24/2019: Normal LV size with mildly to moderately reduced systolic function. EF 42%. Global hypokinesis. Septal motion consistent with bundle- branch block. Mild LVH. Severe left atrial dilation. Mild MR. 6. Echo 09/16/20: Normal LV size. Borderline LVH. Moderate global LV dysfunction, EF 35-40%. Normal RV size/function. Moderate-severe MR. Severe left atrial enlargement. Severe pulmonary hypertension, PASP 70-75 mmHg. Left to right interatrial shunt by Doppler. She is currently admitted for acute exacerbation of CHF. She has been noticing intermittent shortness of breath for the past several days. On Wednesday it was worse and did not go away so she presented to the ED. She denies edema or orthopnea. EKG unchanged. CXR with pulmonary edema and trace pleural effusions. ProBNP elevated. Hypoxic upon ambulation. DDimer was elevated but chest CT negative for PE. She was treated with IV Lasix and admitted for further care. Today she is laying comfortably in bed without complaints. Her granddaughter Erin is visiting. She feels her breathing has improved. She continues to deny orthopnea or PND. Echocardiogram today with EF 35-40%, consistent with previous. She denies chest pain, cough, palpitations. She is essentially net neutral with her volume so far this admission. Weight today 144 lb. Her baseline weight at home is typically 145-150 lb. She takes Lasix 20 mg daily and Sp ironolactone 25 mg daily. SocHx: Patient is and lives in [place] with her . They have 4 children. She denies alcohol or tobacco use. FamHx: Father had stroke. Mother from [place] at the age of 95. No known premature CAD. Allergies Allergy/AdvReac Type Severity Reaction Status Date / Time latex Allergy Unknown LOCAL SKIN Unverified 09/15/20 08:38 IRRITATION Home Medications Home Medications Medication Instructions Recorded Confirmed Type Calcium 600 + D(3) 1 tab PO BID 09/25/18 09/15/20 History atorvastatin 40 mg tablet 40 mg PO DAILY #90 tab 04/02/20 09/15/20 Rx alendronate 70 mg tablet 70 mg PO WEEKLY #12 tab MDD 70mg 05/14/20 09/15/20 Rx weekly losartan 25 mg tablet 50 mg PO BID #360 tab 06/18/20 09/15/20 Rx carvedilol 25 mg tablet 25 mg PO BID #180 tab 06/24/20 09/15/20 Rx furosemide 20 mg tablet 20 mg PO DAILY #90 tab 06/24/20 09/15/20 Rx levothyroxine 25 mcg tablet 25 mcg PO DAILY #90 tab 07/31/20 09/15/20 Rx digoxin 125 mcg (0.125 mg) tablet See Rx Instructions .ROUTE 09/05/20 09/15/20 Rx .COMPLEX #90 tablet docusate sodium 100 mg capsule 100 mg PO BID #180 cap 09/05/20 09/15/20 Rx aspirin 81 mg PO DAILY 09/15/20 09/15/20 History spironolactone 25 mg PO QAM #30 tab 09/16/20 Rx Patient History Medical History Benign essential hypertension Cataract Chronic systolic heart failure Dilated cardiomyopathy Hyperlipidemia Hypothyroidism Left bundle-branch block Lumbar stenosis with neurogenic claudication (11/26/14) Microscopic hematuria Mitral valve insufficiency Osteoarthritis Prediabetes Pulmonary hypertension Ulcerative colitis Urinary incontinence Venous insufficiency Surgical History History of bladder suspension procedure History of inguinal hernia repair B/l History of ovarian cystectomy History of spinal arthrodesis LUMBAR DECOMPRESSION WITH FUSION; DR. DREW History of total hip replacement (04/23/15) ONSET:[id number] R HIP History of total knee arthroplasty (2006) RIGHT KNEE S/P hysterectomy Family History Mother Myocardial infarction Denies family history of Ovarian cancer Prostate cancer Breast cancer Colorectal cancer Social History Smoking Status: Former smoker Second Hand Exposure: No; Hx Alcohol Use: No Hx Substance Use: No Preferred Language: St Helenian Communication Ability: Effective Visual Impairment: No Limitations Hearing Ability: Normal Stapler Hand Required: No Beliefs That Will Affect Care: None marital status: Current Living Situation: Spouse current occupational status: retired Feels Safe at Home: Yes caffeine: Yes (coffee x 1 cup daily.) during the past year weight has: remained stable Dental Care, Regularly: Yes Physical Activity Frequency: Does not Exercise Seatbelt Use: always Sunscreen Use: No Assistive Devices: Cane Review of Systems Review of Systems: As noted in HPI. All other ROS are reviewed and otherwise negative at this time. Physical Exam Physical Exam: Constitutional: Alert, oriented, in no acute distress HEENT: Head is atraumatic and normocephalic. EOMs intact. Sclera non-icteric. Face is symmetric. No perioral cyanosis. Mucous membranes moist Neck: Supple, JVD noted snf to the mandible at 45 degrees. + HJR Pulmonary: Normal respiratory effort, mild bibasilar crackles noted Cardiac: Regular rate and rhythm, normal S1 and S2, no gallops, no rubs, 1/6 holosystolic murmur Extremities: Trace pitting edema. No clubbing or cyanosis. Pulses 2+ and symmetric Abdomen: Normal bowel sounds, soft, non-tender, no abdominal masses palpated Skin: Normal skin color, turgor, and pigmentation. No rash or skin lesions Neurological: Oriented to person, place, and time Results & Data ([facility]) Vital Signs (Past 12 Hours) Vital Signs Temp Pulse Pulse Resp BP Pulse Ox 09/16/20 11:09 98.4 F 65 18 166/76 H 90 09/16/20 08:00 66 09/16/20 07:07 98.4 F 63 18 171/74 H 91 09/16/20 05:37 136/74 09/16/20 03:16 98.2 F 71 18 169/73 H 91 Coding Level of Care Code 03199 Initial Inpt Care Lvl 3 Diagnoses Acute exacerbation of CHF (congestive heart failure) I50.23 Heart failure type: systolic Chronic systolic heart failure I50.22 Dilated cardiomyopathy I42.0 Left bundle-branch block I44.7 Pulmonary hypertension I27.20 Mitral regurgitation I34.0 (1) Acute exacerbation of CHF (congestive heart failure) Heart failure type: systolic Qualified Code(s): I50.23 - Acute on chronic systolic (congestive) heart failure
--- NOTE | 2020-09-16 15:49 | Discharge Summary ---
Date of Service September 16, 2020 Admission HPI Per Admitting Provider 85 y/o F c/o SOB. SOB has been worse when getting OOB in AM, but gets better with moving around. This has been happening the last few days, however, this AM it did not improve. She notes no self noted weight gain. Pt denies fever, chest pain, abd pain, n/v/c/d, LE pain. Has baseline LE swelling. No chest pain. Can lie flat. Sleeps on side without issues. Chronic external burning with urination, this is not new. s/p lasix 40mg IV in ED. She states she is still getting SOB when moving OOB to use the restroom. She does not feel this has improved. Pt states she took all of her AM meds today EXCEPT for her lasix. Principal Diagnosis Pt feels much improved. Still with a bit of SOB this AM, but nothing like it had been. No chest pain. Tolerating PO without issue. Pt denies fever, abd pain, n/v/c/d, LE pain or swelling. She feels much improved and is asking to go home. Discharge Exam Constitutional WD/WN, vitals as above Eyes normal visual wright by confrontation and + anicteric sclerae Neck normal visual inspection and trachea midline Respiratory normal respiratory effort; no respiratory distress Auscultation: + crackles (trace, improved); no wheezes Cardiovascular Rate/Rhythm: regular rate and regular rhythm Extremities: + edema (1+ b/l LE) Gastrointestinal (Abdomen) Inspection/Auscultation: abdomen not distended Percussion/Palpation: abdomen soft; abdomen nontender Musculoskeletal Head/Neck/Chest: normocephalic and head atraumatic Skin no rashes, warm and dry Neurologic awake; not confused Speech / Cognition: normal speech Psychiatric A+Ox3, euthymic affect Discharge Data Allergies Allergy/AdvReac Type Severity Reaction Status Date / Time latex Allergy Unknown LOCAL SKIN Unverified 09/15/20 08:38 IRRITATION Consultations 09/15/20 11:04 ED Decision to Admit Stat 09/15/20 13:44 Consult Case Management - Discharge Planning Routine Consult Case Management - Discharge Planning Routine [facility] Referral Routine Ordered Studies 09/15/20 09:39 CT angio chest PE protocol Stat Hospital Course (1) Acute exacerbation of CHF (congestive heart failure): Noted on CXR, CTA chest hypoxic with ambulation in ED Given lasix 40mg IV x1 in ED Repeat 20mg IV dosing today BNP elevated on admission Home lasix 20mg QD and spironolactone 25mg QD, compliant Does not appear to follow with CHF clinic, c/s pending Last ECHO 03/2019 with EF 35-40%, repeat today stable without new issues Will f/u with CHF clinic next week Discussed dietary salt and fluid intake No change in medications at this time (2) Elevated troponin I level: Likely demand ischemia Initial trop 0.22, serials unchanged EKG noted Home aspirin 81mg use Nuclear stress 04/2019 with EF 37% and severe hypokinesis (3) 1st degree AV block: Asx with this Monitor (4) Pulmonary hypertension: Noted prior (5) Chronic systolic heart failure: continue home meds CHF clinic c/s (6) Prediabetes: A1c 6.1 04/18/20, will not repeat at this time No current meds (7) Left bundle-branch block: Noted on EKG, hx of same (8) Hypothyroidism: continue home meds (9) Hyperlipidemia: continue home meds (10) Dilated cardiomyopathy: Noted (11) Benign essential hypertension: continue home meds Hold digoxin overnight (12) Ulcerative colitis: No current sx (13) D-dimer, elevated: Likely relate to above CTA chest neg for PE COVID neg (14) Abnormal CT scan, chest: Abnormal R hilar LN Recs for repeat in 3 months I did discuss with pt and daughter in ED, aware of need for f/u CT (15) Urinary incontinence: continue home meds UA neg (16) DVT prophylaxis: SCDs given OBS status Discussed with daughter prior to d/c as did not answer. Questions answered. Total Time Total Time Spent Total Time Spent (In Minutes): >30 Total Time Includes: Examination of the Patient, Discharge Planning, Medication Reconciliation, Communication With Other Providers and Other Discharge Plan Discharge Items Patient Disposition: Home - Self-Care Reason For Visit: CHF Discharge Diagnosis: CHF exacerbation Activity: Resume your previous activity Non-emergency contact: Primary Care Provider and Bus Dispatcher [employer] Call non-emergency contact if: you have any medication questions, your symptoms worsen and your pain is unusual for you Follow-up/Referrals: Loren Flores DO [Primary Care Provider] - 09/24/20 9:20 am (Please follow up with Dr. Flores on Wednesday09/24/2020 at 9:20 am. Please arrive to the office 15 minutes early for your appointment. If you are unable to keep this appointment, please call the office to reschedule at [phone].) Kayleen Canela PA-C [Physician Crate Repairer] - 09/23/20 10:30 am (Please follow up with Kayleen Canela PA-C on Wednesday09/23/2020 at 10:30 am for heart failure clinic. Please arrive to the office 15 minutes early for your appointment. If you are unable to keep this appointment, please call the office to reschedule at [phone].) Diet: Low Sodium (2gm) Fluids: 1500ml (6 cups) Addtl Attending Provider Instructions: You should watch for hidden salt content in items like soups, luncheon meats, processed foods, and take out. Pending Studies at Discharge: No Stand-Alone Forms: My [facility], Smoking Cessation Medications and DC Order Prescriptions: New spironolactone 25 mg Tablet 25 mg PO QAM Qty: 30 RF: 0 Continued atorvastatin 40 mg tablet 40 mg PO DAILY Qty: 90 RF: 3 alendronate 70 mg tablet 70 mg PO WEEKLY MDD 70mg weekly Qty: 12 RF: 3 losartan 25 mg tablet 50 mg PO BID Qty: 360 RF: 3 carvedilol 25 mg tablet 25 mg PO BID Qty: 180 RF: 1 furosemide 20 mg tablet 20 mg PO DAILY Qty: 90 RF: 1 levothyroxine 25 mcg tablet 25 mcg PO DAILY Qty: 90 RF: 1 digoxin 125 mcg (0.125 mg) tablet See Rx Instructions .ROUTE .COMPLEX Qty: 90 RF: 1 docusate sodium 100 mg capsule 100 mg PO BID Qty: 180 RF: 1 Calcium 600 + D(3) 600 mg calcium- 200 unit Capsule 1 tab PO BID RF: 0 aspirin 81 mg Tablet,Delayed Release (Dr/Ec) 81 mg PO DAILY RF: 0 Discharge Orders: Discharge Order (Routine); Ordered 09/16/20 Ordered By: Mary Kay Mattson/Other Patient Handouts: Heart Failure Meds, CHF Ch, Spironolactone tablets Admission Data Admit Date/Time: 09/15/20 12:09 Attending Provider: Mary Kay Larios Admit Provider: Mary Kay Larios Primary Care Provider: Loren Flores Other Providers: Mary Kay Larios ; Kayleen Canela Other Interventions: Discharge Summary Assessment (RN) Last Done: 09/16/20 16:10 Coding Level of Care Code D/C Day Management >30 mins Diagnoses Acute exacerbation of CHF (congestive heart failure) I50.23 Heart failure type: systolic Elevated troponin I level R77.8 1st degree AV block I44.0 Pulmonary hypertension I27.20 Chronic systolic heart failure I50.22 Prediabetes R73.03 Left bundle-branch block I44.7 Hypothyroidism E03.9 Hyperlipidemia E78.5 Dilated cardiomyopathy I42.0 Benign essential hypertension I10 Ulcerative colitis K51.90 D-dimer, elevated R79.[address] scan, chest R93.89 Urinary incontinence R32 DVT prophylaxis Z29.9
== END 2020-09-16 16:59 | disposition home or self-care (01) ==
LOC: ED 08:12 → 2S 08:12

== ENCOUNTER 2021-12-19 09:51 | Observation (INO) ==
[2021-12-19] MEDS ORDERED: SODIUM CHLORIDE 0.9% 500 ML IV STA (11:11)
[2021-12-19 11:12] LABS: Basophils # (auto) 0.03 K/uL (0-0.2); Basophils % (auto) 0.4 %; Eosinophils # (auto) 0.28 K/uL (0-0.5); Eosinophils % (auto) 4.1 %; Hematocrit (blood only) 36.6 % (37-47); Hemoglobin 12.3 g/dL (12.0-16.0); Immature Granulocytes # (auto) 0.01 K/uL (0.00-0.02); Immature Granulocytes % (auto) 0.1 %; Lymphocytes # (auto) 1.53 K/uL (1.2-3.4); Lymphocytes % (auto) 22.6 %; Mean Corpuscular Hemoglobin 29.9 pg (25-34); Mean Corpuscular Hgb Conc 33.6 g/dL (32-36); Mean Corpuscular Volume 88.8 fL (80-100); Mean Platelet Volume 8.9 fL (7.4-10.4); Monocytes # (auto) 0.56 K/uL (0.11-0.59); Monocytes % (auto) 8.3 %; Neutrophils # (auto) 4.37 K/uL (1.4-6.5); Neutrophils % (auto) 64.5 %; Platelet Count 203 K/uL (130-400); RDW Coefficient of Variation 13.4 % (11.5-14.5); RDW Standard Deviation 44.1 fL (36.4-46.3); Red Blood Count 4.12 M/uL (4.2-5.4); White Blood Count 6.78 K/uL (4.8-10.8)
--- NOTE | 2021-12-19 11:15 | Emergency Department Note ---
Impression & Plan Left ureteral calculus, Urinary tract infection, Hydronephrosis ED Provider Note NAME: NEREIDA MONROE AGE: 86 SEX: F : 1935 ARRIVES VIA: Walk-In INFORMANT: Patient, the patient's daughter ED PROVIDER(S): Juan Webber DO CHIEF COMPLAINT: Abdominal pain HPI: The patient is an 86-year-old female who presented to emergency department for an evaluation of lower abdominal pain. The patient states that she is been having trouble voiding. She has pain with urination but also has post void residual. She was seen by urology and placed on Flomax. She is never had a Ford catheter. They thought that this could be secondary to a neurologic issue according to her daughter she had an MRI which did not show any abnormality that would cause the patient's symptoms. She denies having any lower extremity numbness. She denies having any back pain at this time. The patient called her daughter today because she was having ongoing and worsening symptoms and was referred to the emergency department. She denies having any recent trauma. She has no fever. She did not see her family doctor for the symptoms. The patient denies having any chest pain or difficulty breathing. ROS: See above HPI for pertinent positives & negatives. A total of 10 systems reviewed and were otherwise negative. PAST MEDICAL HISTORY: See Below PAST SURGICAL HISTORY: See Below FAMILY HISTORY: See Below SOCIAL HISTORY: See Below HOME MEDICATIONS: See Below ALLERGIES: See Below VITALS: See Below PHYSICAL EXAMINATION: GENERAL: Patient is awake alert in no acute distress patient is resting comfortably and showing no signs of anxiety EYES: The conjunctivae are clear. The pupils are round and reactive. EARS, NOSE, MOUTH AND THROAT: The nose is without any evidence of any deformity. NECK: The neck is nontender and supple. RESPIRATORY: Normal respiratory effort is noted there is no evidence of wheezing rhonchi or rales CARDIOVASCULAR: Regular rate and rhythm noted there no murmurs rubs or gallops normal S1 normal S2. GASTROINTESTINAL: Abdomen is soft and mildly distended. There is suprapubic ten derness to palpation but no guarding rigidity. BACK: No midline tenderness or or step-off noted range of motion in flexion extension as well as rotation no signs of muscle spasm noted MUSCULOSKELETAL/EXTREMITIES: There is no evidence of gross deformity full range of motion is noted in the hips and shoulders. SKIN: The skin is warm and dry. There is no pedal edema. NEUROLOGIC: Patient is awake alert and oriented x3 strength is symmetric patellar reflexes are 2+ bilaterally MEDICAL DECISION MAKING: The patient is an 86-year-old female who presented to the emergency department for an evaluation of left-sided abdominal pain. The patient was seen by urology. She was started on medications for her urine stream. The patient presented to the emergency department today because of worsening left flank pain. I discussed the patient's laboratory and radiographic studies with her. She was treated with IV fluids in the emergency department. She was also started on IV antibiotics for urinalysis that appeared to be consistent with urine infection. I discussed the patient's laboratory and radiographic studies with the on-call [facility]. I also discussed her presentation with her primary urologist. Ultimately she was felt to be a good candidate for inpatient management. She was agreeable with this plan. Triage Nursing notes reviewed. Prior medical records reviewed Vital Signs: reviewed and remarkable for elevated blood pressure. Differential diagnosis: Renal colic, UTI, appendicitis, diverticulitis, mesenteric ischemia, aortic pathology, infections, inflammatory bowel disease, PUD, biliary pathology, as well as other pathologies. ER treatment provided: See below Diagnostics interpreted by me: ECG: none Cardiac Monitoring: An order was placed for continuous cardiac monitoring. The monitor shows a rate of 72 bpm with sinus rhythm. Laboratory studies: As stated above and show below. Imaging studies: See below Consultation(s): I discussed this case with Dr. Damon who is the patient's primary urologist. I discussed this case with Dr. Suero who is on-call for the [facility]. He will evaluate the patient in the emergency department Past Med/Surg History Medical History Benign essential hypertension Cataract Chronic systolic heart failure Dilated cardiomyopathy Frequent urination Hyperlipidemia Hypothyroidism Left bundle-branch block Lumbar stenosis with neurogenic claudication (11/26/14) Microscopic hematuria Mitral valve insufficiency Osteoarthritis Prediabetes Pulmonary hypertension Ulcerative colitis Urinary incontinence Venous insufficiency Surgical History History of bladder suspension procedure History of inguinal hernia repair B/l History of ovarian cystectomy History of spinal arthrodesis LUMBAR DECOMPRESSION WITH FUSION; DR. 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 Beliefs That Will Affect Care: None marital status: Current Living Situation: Spouse current occupational status: retired Feels Safe at Home: Yes Childhood Exposure to Second-Hand Smoke: No caffeine: Yes (coffee x 1 cup daily.) during the past year weight has: remained stable Dental Care, Regularly: Yes Physical Activity Frequency: Does not Exercise Seatbelt Use: always Sunscreen Use: No Assistive Devices: Cane Allergies Allergies Allergy/AdvReac Type Severity Reaction Status Date / Time latex Allergy Mild LOCAL SKIN Verified 12/19/21 12:34 IRRITATION Home Meds Home Medications Medication Instructions Recorded Confirmed calcium carbonate 600 mg-vitamin 1 tab PO BID 09/25/18 12/19/21 D3 5 mcg (200 unit) capsule (Calcium 600 + D(3)) aspirin 81 mg tablet,delayed 81 mg PO DAILY 09/15/20 12/19/21 release alendronate 70 mg tablet 70 mg PO WK MDD 70mg weekly 12/19/21 12/19/21 conjugated estrogens 0.625 mg/gram 0.3125 mg VAGINAL DIRECTED 12/19/21 12/19/21 vaginal cream (Premarin) Previous Rx's Medication Instructions Recorded furosemide 20 mg tablet 20 mg PO DAILY PRN #90 tab 11/25/20 spironolactone 25 mg tablet 25 mg PO QAM #90 tab 01/20/21 atorvastatin 40 mg tablet 40 mg PO DAILY #90 tab 04/11/21 carvedilol 25 mg tablet 25 mg PO BID #180 tab 05/05/21 diclofenac sodium 1 % topical gel 2 g TOPICAL QID PRN #100 g 05/20/21 levothyroxine 25 mcg tablet 25 mcg PO DAILY #90 tab 07/24/21 docusate sodium 100 mg capsule 100 mg PO BID #180 cap 09/01/21 sacubitril 97 mg-valsartan 103 mg 1 tab PO BID #60 tab 10/24/21 tablet (Entresto) tamsulosin 0.4 mg capsule 0.4 mg PO DAILY #30 cap 12/10/21 Results & Data (ED) Vital Signs Vital Signs - 24 hr 12/19/21 09:55 12/19/21 11:23 12/19/21 13:00 Temperature 37 C Temperature Source Oral Pulse Rate 101 H 69 Pulse Rate [Left Radial] 72 Pulse Rhythm Regular Pulse Rhythm [Left Radial] Regular Pulse Strength [Left Radial] Normal Respiratory Rate 18 14 14 Respiratory Effort / Characteristics Non-Labored Non-Labored Respiratory Depth Normal Normal Respiratory Pattern Regular Regular Blood Pressure 163/74 H Blood Pressure Mean 103 Pulse Oximetry 100 98 97 Oxygen Delivery Method Room Air Room Air Room Air Sepsis Recent Fever Within 48 Hours No Sepsis New/Unexplained Change in Mental Status No Sepsis Action Taken by Nursing No Action Required Home Medications Current Medication List: was personally reviewed by me Laboratory Data Attestation: I reviewed the patient's lab results. Result diagrams: 12/19/21 11:00 12/19/21 11:00 Lab Results 12/19/21 12/19/21 12/19/21 Range/Units 11:00 11:00 11:00 WBC 6.78 (4.8-10.8) K/uL RBC 4.12 L (4.2-5.4) M/uL Hgb 12.3 (12.0-16.0) g/dL Hct 36.6 L (37-47) % MCV 88.8 (80-100) fL MCH 29.9 (25-34) pg MCHC 33.6 (32-36) g/dL RDW Std Deviation 44.1 (36.4-46.3) fL RDW Coeff of Tonya 13.4 (11.5-14.5) % Plt Count 203 (130-400) K/uL MPV 8.9 (7.4-10.4) fL Immature Gran % (Auto) 0.1 % Neut % (Auto) 64.5 % Lymph % (Auto) 22.6 % [place] % (Auto) 8.3 % Eos % (Auto) 4.1 % Baso % (Auto) 0.4 % Neut # (Auto) 4.37 (1.4-6.5) K/uL Lymph # (Auto) 1.53 (1.2-3.4) K/uL [place] # (Auto) 0.56 (0.11-0.59) K/uL Eos # (Auto) 0.28 (0-0.5) K/uL Baso # (Auto) 0.03 (0-0.2) K/uL Immature Gran # (Auto) 0.01 (0.00-0.02) K/uL Sodium 129 L (136-145) mmol/L Potassium 4.6 (3.5-5.1) mmol/L Chloride 100 (98-107) mmol/L Carbon Dioxide 23 (21-32) mmol/L Anion Gap 6 (3-11) BUN 31 H (6-23) mg/dl Creatinine 1.16 (0.6-1.2) mg/dl Est Cr Clr Drug Dosing 32.4 ml/min Est GFR ( Amer) 49.7 ml/min Est GFR (Non-Af Amer) 42.9 ml/min BUN/Creatinine Ratio 26.7 H (10-20) Glucose 96 (70-99(Fasting)) mg/dl Calcium 9.3 (8.5-10.1) mg/dl Total Bilirubin 0.7 (0.2-1.0) mg/dl AST 24 (13-39) U/L ALT 21 (7-52) U/L Alkaline Phosphatase 59 (34-104) U/L Total Protein 6.9 (6.0-8.3) gm/dl Albumin 4.0 (3.4-5.0) gm/dl Globulin 2.9 (2.5-4.0) gm/dl Albumin/Globulin Ratio 1.4 (0.9-2) Lipase 43 Cancelled (11-82) U/L Urine Color Urine Appearance (Clear) Urine pH (4.5-7.5) Ur Specific [place] (1.000-1.030) Urine Protein (Negative) Urine Glucose (UA) (Negative) Urine Ketones (Negative) Urine Blood (Negative) Urine Nitrite (Negative) Urine Bilirubin (Negative) Urine Urobilinogen (Negative) Ur Leukocyte Esterase (Negative) Urine WBC (Auto) (0-5) /hpf Urine RBC (Auto) (0-4) /hpf U Hyaline Cast (Auto) (0-5) /lpf U Epithel Cells (Auto) (0-5) /lpf Urine Bacteria (Auto) (Negative) 12/19/21 Range/Units 11:48 WBC (4.8-10.8) K/uL RBC (4.2-5.4) M/uL Hgb (12.0-16.0) g/dL Hct (37-47) % MCV (80-100) fL MCH (25-34) pg MCHC (32-36) g/dL RDW Std Deviation (36.4-46.3) fL RDW Coeff of Tonya (11.5-14.5) % Plt Count (130-400) K/uL MPV (7.4-10.4) fL Immature Gran % (Auto) % Neut % (Auto) % Lymph % (Auto) % [place] % (Auto) % Eos % (Auto) % Baso % (Auto) % Neut # (Auto) (1.4-6.5) K/uL Lymph # (Auto) (1.2-3.4) K/uL [place] # (Auto) (0.11-0.59) K/uL Eos # (Auto) (0-0.5) K/uL Baso # (Auto) (0-0.2) K/uL Immature Gran # (Auto) (0.00-0.02) K/uL Sodium (136-145) mmol/L Potassium (3.5-5.1) mmol/L Chloride (98-107) mmol/L Carbon Dioxide (21-32) mmol/L Anion Gap (3-11) BUN (6-23) mg/dl Creatinine (0.6-1.2) mg/dl Est Cr Clr Drug Dosing ml/min Est GFR ( Amer) ml/min Est GFR (Non-Af Amer) ml/min BUN/Creatinine Ratio (10-20) Glucose (70-99(Fasting)) mg/dl Calcium (8.5-10.1) mg/dl Total Bilirubin (0.2-1.0) mg/dl AST (13-39) U/L ALT (7-52) U/L Alkaline Phosphatase (34-104) U/L Total Protein (6.0-8.3) gm/dl Albumin (3.4-5.0) gm/dl Globulin (2.5-4.0) gm/dl Albumin/Globulin Ratio (0.9-2) Lipase (11-82) U/L Urine Color Yellow Urine Appearance Cloudy A (Clear) Urine pH 7.0 (4.5-7.5) Ur Specific [place] 1.006 (1.000-1.030) Urine Protein Negative (Negative) Urine Glucose (UA) Negative (Negative) Urine Ketones Negative (Negative) Urine Blood Trace H (Negative) Urine Nitrite Negative (Negative) Urine Bilirubin Negative (Negative) Urine Urobilinogen Negative (Negative) Ur Leukocyte Esterase 3+ H (Negative) Urine WBC (Auto) >30 H (0-5) /hpf Urine RBC (Auto) 0-4 (0-4) /hpf U Hyaline Cast (Auto) 0 (0-5) /lpf U Epithel Cells (Auto) 0-5 (0-5) /lpf Urine Bacteria (Auto) Negative (Negative) Administered Medications Discontinued Medications Sodium Chloride (Nss) 500 mls @ 999 mls/hr IV .Q31M STA Stop: 12/19/21 11:41 Last Infusion: 12/19/21 12:06 Dose: 0 mls/hr Documented by: [id number] Admin: 12/19/21 11:24 Dose: 999 mls/hr Documented by: [id number] Ceftriaxone Sodium (Rocephin) 1,000 mg in 50 mls @ 100 mls/hr IV NOW STA Stop: 12/19/21 12:49 Last Infusion: 12/19/21 12:56 Dose: 0 mls/hr Documented by: [id number] Admin: 12/19/21 12:25 Dose: 100 mls/hr Documented by: [id number] Ioversol (Optiray 320 100ml) 95 ml IV ONCE ONE Stop: 12/19/21 12:37 Last Admin: 12/19/21 12:38 Dose: 95 ml Documented by: [id number] Imaging Data Radiologist's Impression: Abdomen/Pelvis CT 12/19/21 12:19 CT abd pelvis IV con only CLINICAL HISTORY: Lower abdominal pain and flank pain COMPARISON STUDY: No previous studies for comparison. CT DOSE: 316.19 mGy.cm TECHNIQUE: Standard CT of the Abdomen and Pelvis was performed with IV contrast. A dose lowering technique was utilized adhering to the principles of ALARA. Contrast Volume: Optiray 320, 95 ml. The patient did not receive oral contrast. FINDINGS: Lung base: The lung bases are clear. Heart is mildly enlarged with mitral annul ar calcification. Abdominal cavity: There is no evidence for abdominal mass, adenopathy or ascites. There is a right inguinal hernia with a loop of small bowel extending into the hernia sac. However, there is no evidence for incarceration or obstruction. Fluid extends distally within the right inguinal canal into the groin. Liver: There is homogeneous attenuation of the liver parenchyma. There is no evidence for enhancing mass lesion. Spleen: There is homogeneous attenuation of the splenic parenchyma. There is no enhancing mass lesion. Pancreas: There is homogeneous attenuation of the pancreatic parenchyma. There is no evidence for mass lesion or peripancreatic fluid collection. Gall Bladder: Gallbladder is well distended. However, there is imaging artifact present related to internal fixation of the spine. The presence of cholelit hiasis cannot be excluded based on this study. Adrenal glands: The adrenal glands are normal in size and attenuation. There is no evidence for enhancing mass lesion. Kidneys: There is homogeneous attenuation of the renal parenchyma bilaterally. On the right side, there is an approximately 6 mm nonobstructing renal calculus. On the left side, there is an 18 mm nonobstructing calculus present within the renal pelvis. However, there is an additional 5 mm calculus present within the proximal left ureter producing mild hydronephrosis and hydroureter on the left. There are small left renal cysts. There is no evidence for enhancing mass. Bowel: The bowel loops are normally placed within the abdomen and pelvis without evidence for dilatation or obstruction. There is no evidence for mass lesion. There are no inflammatory changes present. There is no evidence for free air. Bladder: The bladder is distended with no evidence for focal mass, calculus or diverticulum. : There is no evidence for pelvic mass or adenopathy. There is no evidence for pelvic ascites. There is imaging artifact present related to right hip replacement. Vasculature: There is no evidence for aneurysmal dilatation of the abdominal aorta. Atherosclerotic calcification is present. Osseous structures: There is no acute osseous pathology. Previous internal fixation lumbar spine with degenerative changes are also seen. IMPRESSION: 1. 5 mm proximal left ureteral calculus producing mild left hydronephrosis and hydroureter. 2. Bilateral nonobstructing renal calculi are also present. 3. Right inguinal hernia containing a loop of small bowel. However, there is no evidence for incarceration or obstruction. Fluid is seen within the inguinal canal extending into the groin. 4. Additional nonacute findings are delineated above. ACT 112: Negative or not required by law. Electronically signed by: Ozzie Murrell M.D. 12/19/2021 1:21 PM Discharge Plan Visit Data Chief Complaint: Urinary Symptoms Stated Complaint: PAIN, AND URGENCY ED Provider: Juan Webber Discharge Problem: Left ureteral calculus, Urinary tract infection, Hydronephrosis Patient Disposition: Being Evaluated by Hospitalist Forms Stand Alone Forms: [facility] [employer] Prescriptions Prescriptions: No Action spironolactone 25 mg tablet 25 mg PO QAM Qty: 90 RF: 2 atorvastatin 40 mg tablet 40 mg PO DAILY Qty: 90 RF: 3 carvedilol 25 mg tablet 25 mg PO BID Qty: 180 RF: 1 levothyroxine 25 mcg tablet 25 mcg PO DAILY Qty: 90 RF: 1 docusate sodium 100 mg capsule 100 mg PO BID Qty: 180 RF: 1 Entresto 97-103 mg tablet 1 tab PO BID Qty: 60 RF: 5 diclofenac sodium 1 % gel 2 g topical QID PRN (Reason: pain) Qty: 100 RF: 2 tamsulosin 0.4 mg capsule 0.4 mg PO DAILY Qty: 30 RF: 11 furosemide 20 mg tablet 20 mg PO DAILY PRN (Reason: weight gain) Qty: 90 RF: 1 Calcium 600 + D(3) 600 mg calcium- 200 unit Capsule 1 tab PO BID RF: 0 aspirin 81 mg Tablet,Delayed Release (Dr/Ec) 81 mg PO DAILY RF: 0 alendronate 70 mg tablet 70 mg PO WK MDD 70mg weekly RF: 0 Premarin 0.625 mg/gram cream 0.3125 mg vaginal DIRECTED RF: 0 Referrals Referrals: Loren Flores DO [Primary Care Provider] -
[2021-12-19 11:35] LABS: Albumin Globulin Ratio 1.4 (0.9-2); BUN Creatinine Ratio 26.7 (10-20); Bilirubin,Total 0.7 mg/dl (0.2-1.0); Calcium 9.3 mg/dl (8.5-10.1); Creatinine Clr Calc Pharmacy 32.4 ml/min; Est GFR (African American) 49.7 ml/min; Est GFR (Non-African American) 42.9 ml/min; Globulin 2.9 gm/dl (2.5-4.0); Potassium 4.6 mmol/L (3.5-5.1); Total Protein 6.9 gm/dl (6.0-8.3)
[2021-12-19 12:01] LABS: Appearance Urine Cloudy (Clear); Bacteria Urine Automated Negative (Negative); Bilirubin Urine Negative (Negative); Blood Urine Trace (Negative); Cast Urine Automated 0 /lpf (0-5); Color Urine Yellow; Epithelial Cell Urine Auto 0-5 /lpf (0-5); Glucose Urine UA Negative (Negative); Ketones Urine Negative (Negative); Leukocyte Esterase Urine 3+ (Negative); Nitrite Urine Negative (Negative); Protein Urine Negative (Negative); RBC Urine Automated 0-4 /hpf (0-4); Specific Gravity Urine 1.006 (1.000-1.030); Urobilinogen Urine Negative (Negative); WBC Urine Automated >30 /hpf (0-5)
[2021-12-19] MEDS ORDERED: cefTRIAXone SODIUM 1,000 MG/50 ML BAG IV STA (12:20)
[2021-12-19] MEDS ORDERED: OPTIRAY 320 100ml IV ONE (12:36)
--- NOTE | 2021-12-19 13:22 | CT Scan Report ---
CT abd pelvis IV con only CLINICAL HISTORY: Lower abdominal pain and flank pain COMPARISON STUDY: No previous studies for comparison. CT DOSE: 316.19 mGy.cm TECHNIQUE: Standard CT of the Abdomen and Pelvis was performed with IV contrast. A dose lowering nadir hnique was utilized adhering to the principles of ALARA. Contrast Volume: Optiray 320, 95 ml. The patient did not receive oral contrast. FINDINGS: Lung base: The lung bases are clear. Heart is mildly enlarged with mitral annular calcification. Abdominal cavity: There is no evidence for abdominal mass, adenopathy or ascites. There is a right inguinal hernia with a loop of small bowel extending into the hernia sac. However, t here is no evidence for incarceration or obstruction. Fluid extends distally within the right inguina l canal into the groin. Liver: There is homogeneous attenuation of the liver parenchyma. There is no evidence for enhancing m ass lesion. Spleen: There is homogeneous attenuation of the splenic parenchyma. There is no enhancing mass lesion . Pancreas: There is homogeneous attenuation of the pancreatic parenchyma. There is no evidence for mas s lesion or peripancreatic fluid collection. Gall Bladder: Gallbladder is well distended. However, there is imaging artifact present related to in ternal fixation of the spine. The presence of cholelithiasis cannot be excluded based on this study. Adrenal glands: The adrenal glands are normal in size and attenuation. There is no evidence for enhan cing mass lesion. Kidneys: There is homogeneous attenuation of the renal parenchyma bilaterally. On the right side, the re is an approximately 6 mm nonobstructing renal calculus. On the left side, there is an 18 mm nonobs tructing calculus present within the renal pelvis. However, there is an additional 5 mm calculus pres ent within the proximal left ureter producing mild hydronephrosis and hydroureter on the left. There are small left renal cysts. There is no evidence for enhancing mass. Bowel: The bowel loops are normally placed within the abdomen and pelvis without evidence for dilatat ion or obstruction. There is no evidence for mass lesion. There are no inflammatory changes present. There is no evidence for free air. Bladder: The bladder is distended with no evidence for focal mass, calculus or diverticulum. : There is no evidence for pelvic mass or adenopathy. There is no evidence for pelvic ascites. Ther e is imaging artifact present related to right hip replacement. Vasculature: There is no evidence for aneurysmal dilatation of the abdominal aorta. Atherosclerotic c alcification is present. Osseous structures: There is no acute osseous pathology. Previous internal fixation lumbar spine with degenerative changes are also seen. IMPRESSION: 1. 5 mm proximal left ureteral calculus producing mild left hydronephrosis and hydroureter. 2. Bilateral nonobstructing renal calculi are also present. 3. Right inguinal hernia containing a loop of small bowel. However, there is no evidence for incarcer ation or obstruction. Fluid is seen within the inguinal canal extending into the groin. 4. Additional nonacute findings are delineated above. ACT 112: Negative or not required by law. Electronically signed by: Ozzie Murrell M.D. 12/19/2021 1:21 PM
--- NOTE | 2021-12-19 14:46 | History & Physical Report ---
Date of Service December 19, 2021 Assessment & Plan (1) Urinary tract infection: Plan: Although ua is not particularly dirty, she has significant symptoms of UTI at this time. I believe most of her pain is due to UTI/bladder pain (cystoscopy on 12/10/21 showed severe bladder thickening & inflammation/irritation). Since she just had a cystoscopy within the last 10 days will need to cover for more resistant gram negative pathogens as well as pseudomonas. Change rocephin to cefepime. Low threshold to expand for enterococcal coverage with vancomycin. Send urine culture. Place rosario for severe urinary frequency and other symptoms. Pyridium prn. Ditropan 2.5mg prn. Jackson or plain tylenol prn for bladder pain. (2) Left ureteral calculus: Plan: 5mm stone, proximal left ureter, with mild hydronephrosis. Although some of her abdominal pain could be from the stone, I believe that most of her pain is from the bladder itself. Continue flomax. Gentle fluids with 1 L of NS overnight. Pain control as needed. KUB x-ray in am to assess migration of stone. Strain all urine. I spoke with Dr Umang Yang from [facility] who will consult. Keep NPO after MN tonight in the event she needs intervention tomorrow for the stone (ie ureteral stent). Otherwise conservative measures. (3) Hydronephrosis: Plan: Mild, left ureter, 2nd to #2. Creatinine stable at this time. Repeat creatinine in the am. (4) Hyponatremia: Plan: Patient looks euvolemic or slightly on dry side. Does not examine volume overloaded. Check urine Na and urine Osm. Hold aldactone. NS hydration 1 Liter x 1 only. BMP in am. TSH in 09/2021 was wnl. (5) Chronic systolic heart failure: Plan: EF 45-50%. Nonischemic cardiomyopathy. Continue coreg. Continue Entresto as BP will allow. Hold aldactone for now. Patient has LE edema but otherwise does not examine volume overloaded. O2 sats are wnl. She has not been taking lasix at home as her weights have been stable over the last few weeks. (uses lasix prn for weight gain) Per records had cardiac catheterization in October 2001 at [facility] in [place]. This revealed mild atherosclerotic CAD only per records. No cath since. Her LV function has been depressed since the time of her first cath in [place]. Thus, her cardiomyopathy has always been diagnosed as nonischemic in origin. (6) Prediabetes: Plan: Last HbA1C was in 2019 (6.1%). Will recheck HbA1C in am tomorrow. (7) Hypothyroidism: Plan: TSH late 2020 was wnl. Continue synthroid. (8) Hyperlipidemia: Plan: Continue lipitor. (9) Benign essential hypertension: Plan: BP mildly elevated at presentation, perhaps from pain. Continue home meds including coreg & Entresto. Monitor BPs and adjust meds as needed. (10) DVT prophylaxis: Plan: Hold chemical DVT prophylaxis in the event she needs urological intervention. (11) Cystocele: Plan: As seen on cystoscopy 12/10/21 as outpatient. (12) Left bundle-branch block: Plan: Chronic. No current or past symptoms of ischemia. Plan: daughter updated at bedside today History of Present Illness Chief Complaint: abdominal pain, urinary frequency Primary Care Provider: Loren Flores, DO Very pleasant 86yo female with nonischemic cardiomyopathy with resulting chronic systolic CHF, EF 45-50%; hypothyroidism; HTN; LBBB at baseline. Patient presents from home with 3+ days of worsening lower abdominal pain over the expected location of the bladder, loss of appetite last evening, severe uri nary frequency and urgency - especially last night (was up every hour on the hour with having to go to the bathroom), and incomplete bladder emptying. She denies any fevers or chills. Denies back pain. Denies flank pain. She recently underwent a cystoscopy by Dr Alon Damon on 12/10/21 which revealed an inflamed bladder wall with debris in the urine as well as a large cystocele. The cystoscopy was done due to severe LUTS that had been present chronically. She also had evidence of significant atrophy of the urethral region. Previous to that visit she had been using Myrbetriq and Vesicare but these were stopped in roby of flomax. During her ER visit her daughter reports that she has been voiding nearly every 15 minutes. Daughter reports that sometimes she tries to void but has no urine production. Other times she has 200-300cc of urine out. Allergies Allergy/AdvReac Type Severity Reaction Status Date / Time latex Allergy Mild LOCAL SKIN Verified 12/19/21 12:34 IRRITATION Home Medications Medication Instructions Recorded Confirmed Type calcium carbonate 600 mg-vitamin 1 tab PO BID 09/25/18 12/19/21 History D3 5 mcg (200 unit) capsule (Calcium 600 + D(3)) aspirin 81 mg tablet,delayed 81 mg PO DAILY 09/15/20 12/19/21 History release furosemide 20 mg tablet 20 mg PO DAILY PRN #90 tab 11/25/20 12/19/21 Rx spironolactone 25 mg tablet 25 mg PO QAM #90 tab 01/20/21 12/19/21 Rx atorvastatin 40 mg tablet 40 mg PO DAILY #90 tab 04/11/21 12/19/21 Rx carvedilol 25 mg tablet 25 mg PO BID #180 tab 05/05/21 12/19/21 Rx diclofenac sodium 1 % topical gel 2 g TOPICAL QID PRN #100 g 05/20/21 12/19/21 Rx levothyroxine 25 mcg tablet 25 mcg PO DAILY #90 tab 07/24/21 12/19/21 Rx docusate sodium 100 mg capsule 100 mg PO BID #180 cap 09/01/21 12/19/21 Rx sacubitril 97 mg-valsartan 103 mg 1 tab PO BID #60 tab 10/24/21 12/19/21 Rx tablet (Entresto) tamsulosin 0.4 mg capsule 0.4 mg PO DAILY #30 cap 12/10/21 12/19/21 Rx alendronate 70 mg tablet 70 mg PO WK MDD 70mg weekly 12/19/21 12/19/21 History conjugated estrogens 0.625 mg/gram 0.3125 mg VAGINAL DIRECTED 12/19/21 12/19/21 History vaginal cream (Premarin) Past Med/Surg History Medical History (Updated 12/19/21 @ 16:12 by Terry Suero) Benign essential hypertension Cataract Chronic systolic heart failure EF 45-50%; follows Dr Edward Middleton. Dilated cardiomyopathy Frequent urination Hyperlipidemia Hypothyroidism Left bundle-branch block Lumbar stenosis with neurogenic claudication (11/26/14) Microscopic hematuria Mitral valve insufficiency Osteoarthritis Prediabetes Pulmonary hypertension Ulcerative colitis Urinary incontinence Venous insufficiency Surgical History (Updated 12/19/21 @ 15:55 by Terry Suero) H/O bilateral cataract extraction History of bladder suspension procedure History of inguinal hernia repair B/l History of ovarian cystectomy History of spinal arthrodesis LUMBAR DECOMPRESSION WITH FUSION; DR. DREW History of total hip replacement (04/23/15) ONSET:[id number] R HIP History of total knee arthroplasty (2006) RIGHT KNEE S/P hysterectomy Family History Mother Myocardial infarction Father Myocardial infarction Denies family history of Ovarian cancer Prostate cancer Kidney stones Breast cancer Colorectal cancer Social History (Updated 12/19/21 @ 15:52 by Terry Suero) Smoking Status: Never smoker Second Hand Exposure: No; Hx Alcohol Use: No Hx Substance Use: No Preferred Language: Slovenian Communication Ability: Effective Visual Impairment: Limited Hearing Ability: Normal Sugar Mixer Required: No Beliefs That Will Affect Care: None marital status: Current Living Situation: Spouse Current Living Situation Comment: lives in [place] current occupational status: 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[employer] How many Children do You have: 4 Feels Safe at Home: Yes Childhood Exposure to Second-Hand Smoke: No caffeine: Yes (coffee x 1 cup daily.) during the past year weight has: remained stable Dental Care, Regularly: Yes Physical Activity Frequency: Does not Exercise Seatbelt Use: always Sunscreen Use: No Assistive Devices: Cane Review of Systems Review of Systems: gen - no fever, no chills; appetite loss last pm and today only; no recent weight gain or loss eyes - no changes in vision recently HENT - no loss of taste/smell, no dysphagia CV - no chest pain neck - no pain pulm - no cough or dyspnea or ANTUNEZ GI - suprapubic pain; no flank pain; no nausea/emesis; +constipation - urinary frequency, urgency, incomplete bladder emptying; no dysuria; no foul-smelling urine musculo - denies joint pains skin - no rash neuro - no headache; occasional numbness right hand, intermittent lymph - denies feeling any lymph nodes in the neck or elsewhere psych - denies depression Physical Exam Physical Exam: gen - very pleasant, NAD, awake/alert eyes - lens implants b/l; PERRL HENT - TMs clear b/l; nose clear; mouth - MMM neck - mild JVD present at 30 degrees, submandibular glands prominent b/l vs cervical lymph nodes heart - RRR, s1 s2, 1/6 systolic murmur LLSB lungs - CTA b/l abd - soft, no flank tenderness b/l; BS+; tender suprapubic region; no HSM ext - 1+ edema b/l; varicose veins b/l neuro - strength 5/5 x 4 exts; DTRs 2+ b/l skin - no rash psych - a/o x 3 lymph - cervical LAD vs prominent submandibular glands b/l musculo - no obvious joint effusions Results & Data Results & Data ([facility]) Vital Signs (Past 12 Hours) Vital Signs Temp Pulse Pulse Resp BP Pulse Ox 12/19/21 13:00 72 14 97 12/19/21 11:23 69 14 98 12/19/21 09:55 37 C 101 H 18 163/74 H 100 Laboratory Results Laboratory Results - last 24 hr 12/19/21 12/19/21 12/19/21 11:00 11:00 11:00 WBC 6.78 RBC 4.12 L Hgb 12.3 Hct 36.6 L MCV 88.8 MCH 29.9 MCHC 33.6 RDW Std Deviation 44.1 RDW Coeff of Tonya 13.4 Plt Count 203 MPV 8.9 Immature Gran % (Auto) 0.1 Neut % (Auto) 64.5 Lymph % (Auto) 22.6 [place] % (Auto) 8.3 Eos % (Auto) 4.1 Baso % (Auto) 0.4 Neut # (Auto) 4.37 Lymph # (Auto) 1.53 [place] # (Auto) 0.56 Eos # (Auto) 0.28 Baso # (Auto) 0.03 Immature Gran # (Auto) 0.01 Sodium 129 L Potassium 4.6 Chloride 100 Carbon Dioxide 23 Anion Gap 6 BUN 31 H Creatinine 1.16 Est Cr Clr Drug Dosing 32.4 Est GFR ( Amer) 49.7 Est GFR (Non-Af Amer) 42.9 BUN/Creatinine Ratio 26.7 H Glucose 96 Calcium 9.3 Total Bilirubin 0.7 AST 24 ALT 21 Alkaline Phosphatase 59 Total Protein 6.9 Albumin 4.0 Globulin 2.9 Albumin/Globulin Ratio 1.4 Lipase 43 Cancelled Urine Color Urine Appearance Urine pH Ur Specific [place] Urine Protein Urine Glucose (UA) Urine Ketones Urine Blood Urine Nitrite Urine Bilirubin Urine Urobilinogen Ur Leukocyte Esterase Urine WBC (Auto) Urine RBC (Auto) U Hyaline Cast (Auto) U Epithel Cells (Auto) Urine Bacteria (Auto) 12/19/21 11:48 WBC RBC Hgb Hct MCV MCH MCHC RDW Std Deviation RDW Coeff of Tonya Plt Count MPV Immature Gran % (Auto) Neut % (Auto) Lymph % (Auto) [place] % (Auto) Eos % (Auto) Baso % (Auto) Neut # (Auto) Lymph # (Auto) [place] # (Auto) Eos # (Auto) Baso # (Auto) Immature Gran # (Auto) Sodium Potassium Chloride Carbon Dioxide Anion Gap BUN Creatinine Est Cr Clr Drug Dosing Est GFR ( Amer) Est GFR (Non-Af Amer) BUN/Creatinine Ratio Glucose Calcium Total Bilirubin AST ALT Alkaline Phosphatase Total Protein Albumin Globulin Albumin/Globulin Ratio Lipase Urine Color Yellow Urine Appearance Cloudy A Urine pH 7.0 Ur Specific [place] 1.006 Urine Protein Negative Urine Glucose (UA) Negative Urine Ketones Negative Urine Blood Trace H Urine Nitrite Negative Urine Bilirubin Negative Urine Urobilinogen Negative Ur Leukocyte Esterase 3+ H Urine WBC (Auto) >30 H Urine RBC (Auto) 0-4 U Hyaline Cast (Auto) 0 U Epithel Cells (Auto) 0-5 Urine Bacteria (Auto) Negative Diagnostic Findings Abdomen/Pelvis CT 12/19/21 12:19 CT abd pelvis IV con only CLINICAL HISTORY: Lower abdominal pain and flank pain COMPARISON STUDY: No previous studies for comparison. CT DOSE: 316.19 mGy.cm TECHNIQUE: Standard CT of the Abdomen and Pelvis was performed with IV contrast. A dose lowering technique was utilized adhering to the principles of ALARA. Contrast Volume: Optiray 320, 95 ml. The patient did not receive oral contrast. FINDINGS: Lung base: The lung bases are clear. Heart is mildly enlarged with mitral annular calcification. Abdominal cavity: There is no evidence for abdominal mass, adenopathy or ascites. There is a right inguinal hernia with a loop of small bowel extending into the hernia sac. However, there is no evidence for incarceration or obstruction. Fluid extends distally within the right inguinal canal into the groin. Liver: There is homogeneous attenuation of the liver parenchyma. There is no evidence for enhancing mass lesion. Spleen: There is homogeneous attenuation of the splenic parenchyma. There is no enhancing mass lesion. Pancreas: There is homogeneous attenuation of the pancreatic parenchyma. There is no evidence for mass lesion or peripancreatic fluid collection. Gall Bladder: Gallbladder is well distended. However, there is imaging artifact present related to internal fixation of the spine. The presence of cholelithiasis cannot be excluded based on this study. Adrenal glands: The adrenal glands are normal in size and attenuation. There is no evidence for enhancing mass lesion. Kidneys: There is homogeneous attenuation of the renal parenchyma bilaterally. On the right side, there is an approximately 6 mm nonobstructing renal calculus. On the left side, there is an 18 mm nonobstructing calculus present within the renal pelvis. However, there is an additional 5 mm calculus present within the proximal left ureter producing mild hydronephrosis and hydroureter on the left. There are small left renal cysts. There is no evidence for enhancing mass. Bowel: The bowel loops are normally placed within the abdomen and pelvis without evidence for dilatation or obstruction. There is no evidence for mass lesion. There are no inflammatory changes present. There is no evidence for free air. Bladder: The bladder is distended with no evidence for focal mass, calculus or diverticulum. : There is no evidence for pelvic mass or adenopathy. There is no evidence for pelvic ascites. There is imaging artifact present related to right hip replac ement. Vasculature: There is no evidence for aneurysmal dilatation of the abdominal aorta. Atherosclerotic calcification is present. Osseous structures: There is no acute osseous pathology. Previous internal fixation lumbar spine with degenerative changes are also seen. IMPRESSION: 1. 5 mm proximal left ureteral calculus producing mild left hydronephrosis and hydroureter. 2. Bilateral nonobstructing renal calculi are also present. 3. Right inguinal hernia containing a loop of small bowel. However, there is no evidence for incarceration or obstruction. Fluid is seen within the inguinal ca nal extending into the groin. 4. Additional nonacute findings are delineated above. ACT 112: Negative or not required by law. Electronically signed by: Ozzie Murrell M.D. 12/19/2021 1:21 PM PG Care Time/CCT Total # of Minutes Spent Total Time Spent with Patient: Total time spent is greater than 50% in coordination of care (as documented) at patient's floor/unit and/or counseling patient: Coding Level of Care Code 88538 Initial Inpt Care Lvl 3 Diagnoses Urinary tract infection N39.0 Hematuria presence: without hematuria Urinary tract infection type: site unspecified Left ureteral calculus N20.1 Hydronephrosis N13.30 Hydronephrosis type: unspecified Hyponatremia E87.1 Chronic systolic heart failure I50.22 Prediabetes R73.03 Hypothyroidism E03.9 Hyperlipidemia E78.5 Benign essential hypertension I10 DVT prophylaxis Z29.9 Cystocele Left bundle-branch block I44.7 (1) Urinary tract infection Hematuria presence: without hematuria Urinary tract infection type: site unspecified Qualified Code(s): N39.0 - Urinary tract infection, site not specified (2) Hydronephrosis Hydronephrosis type: unspecified Qualified Code(s): N13.30 - Unspecified hydronephrosis
[2021-12-19] MEDS ORDERED: DICLOFENAC SOD 1% GEL 100 GM TUBE EXT PRN (19:16)
[2021-12-19] MEDS ORDERED: HYDROCODONE/ACETAMOPHEN 5/325MG TAB PO PRN (19:16)
[2021-12-19] MEDS ORDERED: ONDANSETRON INJ 2 MG/ML 2 ML VIAL IV PRN (19:16)
[2021-12-19] MEDS ORDERED: ACETAMINOPHEN 325 MG TAB PO PRN (19:16)
[2021-12-19] MEDS ORDERED: SODIUM CHLORIDE 0.9% 1000ML 1,000 ML IV SCH (19:30)
[2021-12-19] MEDS: CEFEPIME 2,000 MG in SYRINGE 0 ML IV SCH (22:07)
[2021-12-19] MEDS: VALSARTAN/SACUBITRIL 103/97MG TAB PO SCH (22:08)
[2021-12-19] MEDS: carvediloL 25 MG TAB PO SCH (22:08)
[2021-12-19] MEDS: CALCIUM 600MG + VIT D 400 IU TAB PO SCH (22:08)
[2021-12-19] MEDS: POLYETHYLENE (MIRALAX) 17 GM PACK PO SCH (23:07)
[2021-12-20] MEDS: LEVOTHYROXINE SODIUM 25 MCG TABLET PO SCH (06:09)
[2021-12-20] MEDS: OXYBUTYNIN CHLORIDE 5 MG TAB PO PRN ×2 (06:10→21:36)
[2021-12-20] MEDS: PHENAZOPYRIDINE HCL 100 MG TAB PO PRN ×2 (06:10→21:36)
[2021-12-20] MEDS: CEFEPIME 2,000 MG in SYRINGE 0 ML IV SCH ×2 (08:57→21:36)
--- NOTE | 2021-12-20 09:17 | XRay Report ---
KUB HISTORY: Follow-up L sided 5mm stone, proximal ureter COMPARISON: Abdomen and pelvis CT 12/19/2021. FINDINGS: The bowel gas pattern is unremarkable. There are no dilated loops of small bowel to suggest an obstruction. Lumbar spinal fusion hardware and a right total hip arthroplasty are noted. Multipl e pelvic phleboliths are present. Bilateral nephrolithiasis, unchanged. Dominant stone within the lef t kidney measures 1.9 cm. The patient's known mid left ureteral stone is not clearly identified on th is study. No pneumoperitoneum or pneumatosis. IMPRESSION: 1. Stable bilateral nephrolithiasis. 2. The patient's known left ureteral stone is not clearly identified. ACT 112: Negative or not required by law. Electronically signed by: Lew Chavez M.D. 12/20/2021 9:16 AM
[2021-12-20] MEDS: ASPIRIN 81 MG ECTAB PO SCH (09:24)
[2021-12-20] MEDS: carvediloL 25 MG TAB PO SCH ×2 (09:25→21:37)
[2021-12-20] MEDS: VALSARTAN/SACUBITRIL 103/97MG TAB PO SCH ×2 (09:25→21:37)
[2021-12-20] MEDS: ADVANCED PROBIOTIC 1250 MG CAPSULE PO SCH (09:25)
[2021-12-20] MEDS: TAMSULOSIN HCL 0.4 MG CAP PO SCH (09:25)
[2021-12-20] MEDS: ATORVASTATIN 40 MG TAB PO SCH (09:25)
[2021-12-20] MEDS: CALCIUM 600MG + VIT D 400 IU TAB PO SCH ×2 (09:25→21:38)
[2021-12-20] MEDS: POLYETHYLENE (MIRALAX) 17 GM PACK PO SCH ×2 (09:26→21:37)
--- NOTE | 2021-12-20 10:07 | Urology Consultation ---
Date of Consultation December 20, 2021 Assessment & Plan (1) Recurrent UTI: (2) Cystocele: (3) Left ureteral calculus: UTI in the setting of cystocele, postmenopausal status; also with a left proximal ureteral calculus and left renal calculus Overall I think she has 2 distinct problems1 is a bladder infection and the other is a proximal ureteral calculus Fortunately the ureteral calculus seems to be entirely asymptomatic at present I suggest treatment of her UTIit seems that she should be sensitive to a number of oral options Plan for outpatient follow-up and treatment of the stone after completion of treatment of the UTI I did discuss with her that if she experiences fevers, chills, rigors she needs to return immediately to the hospital because this could progress from simple cystitis to pyelonephritis with an obstructing calculus which would necessitate emergent intervention If we can avoid any emergent intervention she likely can be treated in a solitary surgery with left ureteroscopy, laser lithotripsy and stent placement I would like to avoid the emergent intervention as I fear that we will introduce bacteria into her upper tract and we do intervene at present Advance diet History of Present Illness Attending Physician: Terry Carranza MD History of Present Illness 86-year-old female who was recently seen in our office secondary to voiding dysfunction and underwent a cystoscopy at that time which revealed a cystocele Subsequently admitted with severe lower pelvic discomfort with urgency, frequency and dysuria Being treated empirically for a UTIcultures growing E. coli on both 12/18 and 12/19 Sensitivity from 12/18 is reported and she has pansensitive Incidental discovery of a proximal right 5 mm calculus with mild hydronephrosis. She also has a larger stone within the left kidney and small stones in the right kidney She has no left flank pain and has been afebrile and hemodynamically stable She did experience some suprapubic pain this morning but it was very self- limited She has not seen any stones passedhas a catheter in place On tamsulosin and oxybutynin now in addition to ceftriaxone Allergies Allergy/AdvReac Type Severity Reaction Status Date / Time latex Allergy Mild LOCAL SKIN Verified 12/19/21 12:34 IRRITATION Home Medications Medication Instructions Recorded Confirmed Type calcium carbonate 600 mg-vitamin 1 tab PO BID 09/25/18 12/19/21 History D3 5 mcg (200 unit) capsule (Calcium 600 + D(3)) aspirin 81 mg tablet,delayed 81 mg PO DAILY 09/15/20 12/19/21 History release furosemide 20 mg tablet 20 mg PO DAILY PRN #90 tab 11/25/20 12/19/21 Rx spironolactone 25 mg tablet 25 mg PO QAM #90 tab 01/20/21 12/19/21 Rx atorvastatin 40 mg tablet 40 mg PO DAILY #90 tab 04/11/21 12/19/21 Rx carvedilol 25 mg tablet 25 mg PO BID #180 tab 05/05/21 12/19/21 Rx diclofenac sodium 1 % topical gel 2 g TOPICAL QID PRN #100 g 05/20/21 12/19/21 Rx levothyroxine 25 mcg tablet 25 mcg PO DAILY #90 tab 07/24/21 12/19/21 Rx docusate sodium 100 mg capsule 100 mg PO BID #180 cap 09/01/21 12/19/21 Rx sacubitril 97 mg-valsartan 103 mg 1 tab PO BID #60 tab 10/24/21 12/19/21 Rx tablet (Entresto) tamsulosin 0.4 mg capsule 0.4 mg PO DAILY #30 cap 12/10/21 12/19/21 Rx alendronate 70 mg tablet 70 mg PO WK MDD 70mg weekly 12/19/21 12/19/21 History conjugated estrogens 0.625 mg/gram 0.3125 mg VAGINAL DIRECTED 12/19/21 12/19/21 History vaginal cream (Premarin) Patient History Medical History Benign essential hypertension Cataract Chronic systolic heart failure EF 45-50%; follows Dr Edward Middleton. Dilated cardiomyopathy Frequent urination Hyperlipidemia Hypothyroidism Left bundle-branch block Lumbar stenosis with neurogenic claudication (11/26/14) Microscopic hematuria Mitral valve insufficiency Osteoarthritis Prediabetes Pulmonary hypertension Ulcerative colitis Urinary incontinence Venous insufficiency Surgical History H/O bilateral cataract extraction History of bladder suspension procedure History of inguinal hernia repair B/l History of ovarian cystectomy History of spinal arthrodesis LUMBAR DECOMPRESSION WITH FUSION; DR. DREW History of total hip replacement (04/23/15) [id number] R HIP History of total knee arthroplasty (2006) RIGHT KNEE S/P hysterectomy Family History Mother Myocardial infarction Father Myocardial infarction Denies family history of Ovarian cancer Prostate cancer Kidney stones Breast cancer Colorectal cancer Social History Smoking Status: Never smoker Second Hand Exposure: No; Hx Alcohol Use: No Hx Substance Use: No Preferred Language: Kiswahili Communication Ability: Effective Visual Impairment: Limited Hearing Ability: Normal Material Distributor Required: No Beliefs That Will Affect Care: None marital status: Current Living Situation: Spouse Current Living Situation Comment: lives in [place] current occupational status: 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 do You have: 4 Other Information That Helps Us Care for You: No Feels Safe at Home: Yes Safety Concerns: Feels Safe At This Time Childhood Exposure to Second-Hand Smoke: No caffeine: Yes (coffee x 1 cup daily.) during the past year weight has: remained stable Dental Care, Regularly: Yes Physical Activity Frequency: Does not Exercise Seatbelt Use: always Sunscreen Use: No Assistive Devices: Cane and Glasses Review of Systems Constitutional: no fever, no chills and no fatigue Eyes: no worsening vision Ear, Nose, Mouth, Throat: no facial pain and no pain with swallowing Respiratory: no cough and no dyspnea Cardiovascular: no chest pain and no palpitations Gastrointestinal: no abdominal pain, no nausea and no vomiting Genitourinary: + dysuria, + difficulty urinating, + urinary frequency, + urinary hesitancy, + nocturia and + hematuria Musculoskeletal: no back pain Integumentary: no rash and no urticaria Neurologic: no gait abnormality and no unsteadiness Psychiatric: no behavioral changes and no depression Endocrine: no fatigue Results & Data ([facility]) Vital Signs (Past 12 Hours) Vital Signs Temp Pulse Pulse Pulse Resp BP Pulse Ox 12/20/21 08:09 37.0 C 64 18 108/61 92 12/20/21 06:19 73 12/20/21 03:42 37 C 67 18 116/67 93 12/19/21 23:13 88 12/19/21 22:47 36.9 C 94 H 18 124/68 95 PG Care Time/CCT Total # of Minutes Spent Total Time Spent with Patient: Total time spent is greater than 50% in coordination of care (as documented) at patient's floor/unit and/or counseling patient: Coding Level of Care Code 32228 Inpt Consult Level 4 Diagnoses Recurrent UTI N39.0 Cystocele Left ureteral calculus N20.1
[2021-12-20 10:22] LABS: Estimated Average Glucose 123 mg/dl; Hemoglobin A1C 5.9 % (4.5-5.6)
[2021-12-20 11:03] LABS: BUN Creatinine Ratio 23.1 (10-20); Creatinine Clr Calc Pharmacy 34.1 ml/min; Est GFR (African American) 54.2 ml/min; Est GFR (Non-African American) 46.8 ml/min; Potassium 4.6 mmol/L (3.5-5.1)
--- NOTE | 2021-12-20 18:17 | Hospitalist Progress Note ---
Date of Service December 20, 2021 Assessment & Plan (1) Urinary tract infection: Plan: Although ua is not particularly dirty, she has significant symptoms of UTI at this time. I believe most of her pain is due to UTI/bladder pain (cystoscopy on 12/10/21 showed severe bladder thickening & inflammation/irritation). Agree with urology assessment that there is no pyelonephritis based on exam. Urine culture pending sensitivities but growing E. coli Remove Ford catheter to allow adequate treatment of UTI Pyridium prn. Ditropan 2.5mg prn. [place] or plain tylenol prn for bladder pain. (2) Left ureteral calculus: Plan: 5mm stone, proximal left ureter, with mild hydronephrosis. Continue flomax. Pain control as needed. KUB x-ray - left ureteral stone not clearly identified. Strain all urine. Per urology planning on outpatient intervention. No inpatient intervention required at this time as no pyelonephritis suspected. (3) Hydronephrosis: Plan: Mild, left ureter, 2nd to #2. Creatinine stable at this time. Repeat creatinine in the am. (4) Hyponatremia: Plan: Resolved with IV hydration (5) Chronic systolic heart failure: Plan: EF 45-50%. Nonischemic cardiomyopathy. Continue coreg. Continue Entresto as BP will allow. Hold aldactone for now. Patient has LE edema but otherwise does not examine volume overloaded. O2 sats are wnl. She has not been taking lasix at home as her weights have been stable over the last few weeks. (uses lasix prn for weight gain) Per records had cardiac catheterization in October 2001 at [facility] in [place]. This revealed mild atherosclerotic CAD only per records. No cath since. Her LV function has been depressed since the time of her first cath in [place]. Thus, her cardiomyopathy has always been diagnosed as nonischemic in origin. (6) Prediabetes: Plan: Last HbA1C 5.9 No intervention required (7) Hypothyroidism: Plan: TSH late 2020 was wnl. Continue synthroid. (8) Hyperlipidemia: Plan: Continue lipitor. (9) Benign essential hypertension: Plan: BP mildly elevated at presentation, perhaps from pain. Continue home meds including coreg & Entresto. Monitor BPs and adjust meds as needed. (10) Cystocele: Plan: As seen on cystoscopy 12/10/21 as outpatient. (11) Left bundle-branch block: Plan: Chronic. No current or past symptoms of ischemia. Admission and Anticipated Discharge Date Admission Date: December 19, 2021 Subjective No fevers, chills, flank pain. Continues suprapubic pain with Ford catheter currently in place. No dysuria previous to this. Review of Systems Review of Systems: All systems reviewed & are unremarkable except as noted in Subjective Physical Exam Constitutional: WD/WN, vitals as above Eyes: + anicteric sclerae; normal pupil size Neck: trachea midline, no thyromegaly Respiratory: normal respiratory effort, lungs clear to auscultation Cardiovascular: RRR, no murmur, no edema Gastrointestinal (Abdomen): Inspection/Auscultation: normal bowel sounds Percussion/Palpation: + abdomen tender (suprapubic) and abdomen soft Genitourinary: no CVA tenderness Results & Data [facility] & [facility] ([facility]) Vital Signs (Past 12 Hours) Vital Signs Temp Pulse Pulse Resp BP Pulse Ox 12/20/21 15:26 36.6 C 60 20 105/59 L 93 12/20/21 14:20 62 12/20/21 12:13 36.5 C 67 20 103/54 L 92 12/20/21 08:09 37.0 C 64 18 108/61 92 12/20/21 06:19 73 PG Care Time/CCT Total # of Minutes Spent Total Time Spent with Patient: Total time spent is greater than 50% in coordination of care (as documented) at patient's floor/unit and/or counseling patient: Coding Level of Care Code 81194 Subseq Hosp Care Lvl 2 Diagnoses Urinary tract infection N39.0 Hematuria presence: without hematuria Urinary tract infection type: site unspecified Left ureteral calculus N20.1 Hydronephrosis N13.30 Hydronephrosis type: unspecified Hyponatremia E87.1 Chronic systolic heart failure I50.22 Prediabetes R73.03 Hypothyroidism E03.9 Hyperlipidemia E78.5 Benign essential hypertension I10 Cystocele Left bundle-branch block I44.7 (1) Urinary tract infection Hematuria presence: without hematuria Urinary tract infection type: site unspecified Qualified Code(s): N39.0 - Urinary tract infection, site not specified (2) Hydronephrosis Hydronephrosis type: unspecified Qualified Code(s): N13.30 - Unspecified hydronephrosis
[2021-12-21] MEDS: LEVOTHYROXINE SODIUM 25 MCG TABLET PO SCH (05:37)
[2021-12-21] MEDS: CEFEPIME 2,000 MG in SYRINGE 0 ML IV SCH (09:05)
[2021-12-21] MEDS: OXYBUTYNIN CHLORIDE 5 MG TAB PO PRN (09:06)
[2021-12-21] MEDS: CALCIUM 600MG + VIT D 400 IU TAB PO SCH (09:07)
[2021-12-21] MEDS: PHENAZOPYRIDINE HCL 100 MG TAB PO PRN (09:07)
[2021-12-21] MEDS: ATORVASTATIN 40 MG TAB PO SCH (09:07)
[2021-12-21] MEDS: TAMSULOSIN HCL 0.4 MG CAP PO SCH (09:07)
[2021-12-21] MEDS: ASPIRIN 81 MG ECTAB PO SCH (09:07)
[2021-12-21] MEDS: VALSARTAN/SACUBITRIL 103/97MG TAB PO SCH (09:07)
[2021-12-21] MEDS: ADVANCED PROBIOTIC 1250 MG CAPSULE PO SCH (09:08)
[2021-12-21] MEDS: carvediloL 25 MG TAB PO SCH (09:08)
[2021-12-21] MEDS: POLYETHYLENE (MIRALAX) 17 GM PACK PO SCH (09:08)
--- NOTE | 2021-12-21 10:07 | Urology Progress Note ---
Date of Service December 21, 2021 Assessment & Plan (1) Cystocele: (2) Recurrent UTI: (3) Left ureteral calculus: Plan: Voiding dysfunction; UTI; left ureteral stone I think she has 2 distinct problems right now, 1 an acute cystitis, and to a left ureteral calculus which is essentially asymptomatic So far she has progressed well with simple treatment of the UTI I think we can hold on any intervention for the kidney stone presuming she remains hemodynamically stable and comfortable. She is likely suited for discharge home today with oral antibioticslikely best to treat for 14 days total Can follow-up as an outpatient to discuss stone treatment Admission and Anticipated Discharge Date Admission Date: December 19, 2021 Subjective Subjectively doing much better Catheter was removed She is voiding freely Much less abdominal painno pain since early last evening No kidney stone passage Feels her voiding pattern is improving overall Physical Exam Constitutional: well developed and well nourished Respiratory: no respiratory distress Cardiovascular: Extremities: no pedal edema Gastrointestinal (Abdomen): Inspection/Auscultation: abdomen normal to inspection Results & Data ([facility]) Vital Signs (Past 12 Hours) Vital Signs Temp Pulse Pulse Resp BP Pulse Ox 12/21/21 10:03 62 12/21/21 07:00 36.8 C 76 20 119/61 97 12/21/21 04:05 36.5 C 65 18 117/58 L 96 12/21/21 01:17 66 12/20/21 23:00 36.9 C 69 18 119/63 94 PG Care Time/CCT Total # of Minutes Spent Total Time Spent with Patient: Total time spent is greater than 50% in coordination of care (as documented) at patient's floor/unit and/or counseling patient: Coding Level of Care Code 57433 Subseq Hosp Care Lvl 2 Diagnoses Cystocele Recurrent UTI N39.0 Left ureteral calculus N20.1
--- NOTE | 2021-12-21 11:07 | Discharge Summary ---
Date of Service December 21, 2021 Admission HPI Per Admitting Provider Very pleasant 86yo female with nonischemic cardiomyopathy with resulting chronic systolic CHF, EF 45-50%; hypothyroidism; HTN; LBBB at baseline. Patient presents from home with 3+ days of worsening lower abdominal pain over the expected location of the bladder, loss of appetite last evening, severe urinary frequency and urgency - especially last night (was up every hour on the hour with having to go to the bathroom), and incomplete bladder emptying. She denies any fevers or chills. Denies back pain. Denies flank pain. She recently underwent a cystoscopy by Dr Alon Damon on 12/10/21 which revealed an inflamed bladder wall with debris in the urine as well as a large cystocele. The cystoscopy was done due to severe LUTS that had been present chronically. She also had evidence of significant atrophy of the urethral region. Previous to that visit she had been using Myrbetriq and Vesicare but these were stopped in [place] of flomax. During her ER visit her daughter reports that she has been voiding nearly every 15 minutes. Daughter reports that sometimes she tries to void but has no urine production. Other times she has 200-300cc of urine out. Principal Diagnosis Acute UTI Left obstructing ureterolithiasis - not suspected to be infected Discharge Exam Constitutional WD/WN, vitals as above Eyes + anicteric sclerae; normal pupil size Neck trachea midline, no thyromegaly Respiratory normal respiratory effort, lungs clear to auscultation Cardiovascular RRR, no murmur, no edema Gastrointestinal (Abdomen) Inspection/Auscultation: normal bowel sounds Percussion/Palpation: + abdomen tender (suprapubic) and abdomen soft Genitourinary no CVA tenderness Discharge Data Allergies Allergy/AdvReac Type Severity Reaction Status Date / Time latex Allergy Mild LOCAL SKIN Verified 12/19/21 12:34 IRRITATION Consultations 12/19/21 14:52 ED Decision to Admit Stat 12/19/21 19:16 Consult Urology Routine Ordered Studies 12/19/21 12:19 CT abd pelvis IV con only Stat IMPRESSION: 1. 5 mm proximal left ureteral calculus producing mild left hydronephrosis and hydroureter. 2. Bilateral nonobstructing renal calculi are also present. 3. Right inguinal hernia containing a loop of small bowel. However, there is no evidence for incarceration or obstruction. Fluid is seen within the inguinal canal extending into the groin. 4. Additional nonacute findings are delineated above. Hospital Course (1) Urinary tract infection: Mercedes Ibarra is an 86 year old female admitted from December 19 - 2021 due to acute urinary tract infection following cystoscopy. Urine culture grew pansensitive E. Coli. Initially this was treated with intravenous antibiotics and switched to cefdinir on discharge for a total duration of 14 days per urology recommendations. She was also diagnosed with an obstructing ureterolithiasis associated with hydronephrosis. This is not suspected to be infected at this time and she will follow up with urology for definitive management of this as an outpatient. She has no CVA tenderness and creatinine is at baseline. She was advised to return to the ER if febrile or back pain. (2) Left ureteral calculus: (3) Hydronephrosis: (4) Hyponatremia: (5) Chronic systolic heart failure: (6) Prediabetes: (7) Hypothyroidism: (8) Hyperlipidemia: (9) Benign essential hypertension: (10) Cystocele: (11) Left bundle-branch block: Total Time Total Time Spent Total Time Spent (In Minutes): 45 Discharge Plan Discharge Items Patient Disposition: Home - Self-Care Reason For Visit: UTI, OBSTRUCTING L KIDNEY STONE Discharge Diagnosis: Acute UTI Left kidney stone Activity: Resume your previous activity Non-emergency contact: Urologist Call non-emergency contact if: you have any medication questions, your symptoms worsen and your temperature is above 101 Follow-up/Referrals: Loren Flores DO [Primary Care Provider] - 12/31/21 8:20 am Alon Damon DO [Physician] - (Nephrolithiasis follow up within 1 week) Diet: Regular Addtl Attending Provider Instructions: You were admitted from December 19 - 2021 due to acute urinary tract infection following cystoscopy. Urine culture grew pansensitive E. Coli. Initially this was treated with intravenous antibiotics and switched to cefdinir on discharge for a total duration of 14 days per urology recommendations. You were also diagnosed with a kidney stone with associated hydronephrosis. This is not suspected to be infected at this time and you will follow up with urology for definitive management of this as an outpatient. Pending Studies at Discharge: No Stand-Alone Forms: [facility], Smoking Cessation Medications and DC Order Prescriptions: New phenazopyridine [Pyridium] 100 mg Tablet 100 mg PO TID PRN (Reason: Painful urination) Qty: 20 RF: 0 oxybutynin chloride 5 mg Tablet 2.5 mg PO BID PRN (Reason: bladder spasms) Qty: 10 RF: 0 cefdinir 300 mg capsule 300 mg PO BID 12 Days Qty: 24 RF: 0 Continued spironolactone 25 mg tablet 25 mg PO QAM Qty: 90 RF: 2 atorvastatin 40 mg tablet 40 mg PO DAILY Qty: 90 RF: 3 levothyroxine 25 mcg tablet 25 mcg PO DAILY Qty: 90 RF: 1 docusate sodium 100 mg capsule 100 mg PO BID Qty: 180 RF: 1 Entresto 97-103 mg tablet 1 tab PO BID Qty: 60 RF: 5 diclofenac sodium 1 % gel 2 g topical QID PRN (Reason: pain) Qty: 100 RF: 2 tamsulosin 0.4 mg capsule 0.4 mg PO DAILY Qty: 30 RF: 11 furosemide 20 mg tablet 20 mg PO DAILY PRN (Reason: weight gain) Qty: 90 RF: 1 Calcium 600 + D(3) 600 mg calcium- 200 unit Capsule 1 tab PO BID RF: 0 aspirin 81 mg Tablet,Delayed Release (Dr/Ec) 81 mg PO DAILY RF: 0 alendronate 70 mg tablet 70 mg PO WK MDD 70mg weekly RF: 0 Premarin 0.625 mg/gram cream 0.3125 mg vaginal DIRECTED RF: 0 No Action carvedilol 25 mg tablet 25 mg PO BID Qty: 180 RF: 1 Discharge Orders: Discharge Order (Routine); Ordered 12/21/21 Ordered By: Terry Carranza Admission Data Admit Date/Time: 12/19/21 15:38 Attending Provider: Terry Carranza Admit Provider: Terry Suero Primary Care Provider: Loren Flores Other Providers: Terry Suero ; Alex Yang Other Interventions: Discharge Summary Assessment (RN) Last Done: 12/21/21 11:10 Coding Level of Care Code D/C DAY MANAGEMENT >30 MINS Diagnoses Urinary tract infection N39.0 Hematuria presence: without hematuria Urinary tract infection type: site unspecified Left ureteral calculus N20.1 Hydronephrosis N13.30 Hydronephrosis type: unspecified Hyponatremia E87.1 Chronic systolic heart failure I50.22 Prediabetes R73.03 Hypothyroidism E03.9 Hyperlipidemia E78.5 Benign essential hypertension I10 Cystocele Left bundle-branch block I44.7
== END 2021-12-21 12:38 | disposition home or self-care (01) ==
LOC: ED 09:51 → SUATTDRO 15:38 → INTOOBSV 15:38 → EDINP 15:38 → 2W 22:51

== ENCOUNTER 2025-01-09 10:44 | Observation (INO) ==
--- NOTE | 2025-01-09 11:42 | Emergency Department Note ---
Impression & Plan Acute exacerbation of CHF (congestive heart failure), Atrial fibrillation, new onset Admission ED Provider Note HPI: History obtained from patient and the patient's daughter at the bedside. The patient is a 89-year-old female with history of CHF with reduced ejection fraction, presents the emergency department with a chief complaint of shortness of breath. Patient states for about the past 2 weeks she has had some increased shortness of breath with even minimal exertion. Patient gives the example that when she is getting change she becomes short of breath. Patient has not had any chest pain with this. On arrival here to the ED the patient is mildly hypotensive at 97/59 but otherwise hemodynamically stable, she is saturating well on room air on arrival. Patient states that at times she has had a slight cough but she denies any recent fever/chills. ROS: - Per HPI Differential Diagnosis: Acute CHF exacerbation with dyspnea, pneumonia, viral upper respiratory infection to include COVID-19, influenza A, ACS, amongst other potential pathologies. *Outpatient medications and allergy history reviewed. PE: General: Alert HEENT: Normocephalic, trachea midline Eyes: Extraocular eye movement is intact, no scleral erythema Pulmonary: Clear to auscultation bilaterally, no wheezing or crackles Cardio: Regular rate and irregular rhythm GI: Abdomen is soft to palpation : No suprapubic tenderness MSK: No evidence of trauma or malformation of the extremities, 2+ edema of bilateral lower extremities Skin: No evidence of rash Neuro: Alert, no focal deficits Psychiatric: Cooperative INDEPENDENT INTERPRETATIONS: insurance verification rep: (As interpreted by myself): - An order was placed for continuous cardiac monitoring - Patient was noted to be in atrial fibrillation with rate of 75 EKG: (As interpreted by myself): Rate: 72 Rhythm: Atrial fibrillation Intervals: QRS 154 ms, chronic left bundle branch block noted, otherwise within normal limits ST changes: No ST elevation Time: 1115 Chest x-ray: (As interpreted by myself): CHF pattern Interventions provided in ED: -IV Lasix Medical Decision Making: IV was established and lab work obtained, patient was placed on chain saw mechanic. Lab work shows no leukocytosis, hemoglobin is stable 11.7, platelet count is normal, CMP does not show any evidence of any critical findings. BNP is noted to be elevated at 1073, troponin is negative. EKG shows what appears to be new onset atrial fibrillation with a rate of 72. Chest x-ray does show a pattern of fluid overload. Patient was given a dose of IV Lasix here in the ED. Patient is saturating well on room air, she denies any chest pain. Despite this, she has had fairly severe exertional dyspnea and what appears to be new onset atrial fibrillation. Therefore I did recommend admission and the patient and her daughter were in agreement. Case was then discussed with the on-call hospitalist, Dr. Suero, and the patient was placed for admission in stable condition for further care. Consultants/Discussions held with other healthcare providers: -Hospitalist, Dr. Suero Disposition discussion held by myself with: -Patient and patient's daughter at the bedside Diagnosis: 1. Acute exacerbation of congestive heart failure with dyspnea 2. Elevated BNP 3. New onset atrial fibrillation, acute Disposition: Admission Jamaal Drew DO Emergency Medicine Past Med/Surg History Problem List (Updated 01/09/25 @ 17:01 by Jamaal Drew DO) Atrial fibrillation, new onset (Acute) Acute exacerbation of CHF (congestive heart failure) (Acute) Pulmonary hypertension Significant pulmonary hypertension suggested in the past and on September 2020 echo. This was done while hypervolemic. RVSP normal on 01/23/2021 echo. Prediabetes Mixed hyperlipidemia Hx of ulcerative colitis Recurrent UTI HTN (hypertension) Hypothyroidism (acquired) Atrial fibrillation with RVR Acute on chronic systolic heart failure Heart failure with improved ejection fraction (HFimpEF) Hard of hearing Vitamin D deficiency Rectocele Urinary frequency Osteopenia Hydronephrosis (Acute) Left ureteral calculus (Acute) Recurrent UTI (Acute) Mitral regurgitation Mitral valve insufficiency (Acute) Microscopic hematuria (Acute) Lumbar stenosis with neurogenic claudication Venous insufficiency Medical History (Updated 01/09/25 @ 17:01 by Jamaal Drew DO) 1st degree AV block Chronic systolic heart failure Follows with [facility]/Dr. Middleton, EF 45-50% Ulcerative colitis Controlled Hypothyroidism Hyperlipidemia Dilated cardiomyopathy Follows with [facility]/Dr. Middleton Benign essential hypertension Incarcerated right inguinal hernia Abnormal CT scan, chest Osteopenia Mitral valve insufficiency Inguinal hernia, right Lung nodule monitored, no biopsy Poor short term memory Left bundle-branch block Chronic, indication for stress test done in 2019 was LBBB* Surgical History H/O right inguinal hernia repair (02/03/24) Right Laparoscopic Inguinal Hernia Repair with Mesh(Right) - Demian Garcia, Hx of cardiac catheterization "racing heart"- Parvez, no stents, follows with [facility] Middleton Hx of cystoscopy kidney stones History of total abdominal hysterectomy History of endoscopy History of lumbar fusion Lumbar decompression/fusion History of colonoscopy H/O bilateral cataract extraction S/P hysterectomy History of bladder suspension procedure History of total knee arthroplasty (~2006) Right History of total hip replacement History of ovarian cystectomy Family History (Updated 01/09/25 @ 14:48 by Terry Suero MD) Mother Myocardial infarction presumed; in her 90s Father Myocardial infarction age 68 Daughter Family history of renal cancer Denies family history of Ovarian cancer Prostate cancer Kidney stones Breast cancer Colorectal cancer Social History (Updated 01/09/25 @ 14:48 by Terry Suero MD) Smoking Status: Never smoker Second Hand Exposure: No; Do You Dip or Chew Tobacco: No; Hx Alcohol Use: No Hx Substance Use: No Preferred Language: Belarusian Communication Ability: Effective Communication Ability Comment: pt is able to communicate w/o assistive devices Visual Impairment: No Limitations Hearing Ability: Normal Technician'S Helper Required: No Beliefs That Will Affect Care: None marital status: / marital status details: lost spouse in February 2023 Current Living Situation: Alone Current Living Situation Comment: pt lives at home alone, but in close proximity to daughter, neighbors current occupational status: 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[employer]; 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 How many Children do You have: 4 How many Children do You have Comment: 3 children live close by on the family's property Other Information That Helps Us Care for You: No Feels Safe at Home: Yes Safety Concerns: Feels Safe At This Time Childhood Exposure to Second-Hand Smoke: No Diet: regular Diet Comment: regular caffeine: Yes (coffee x 1 cup daily.) during the past year weight has: remained stable Dental Care, Regularly: Yes Physical Activity Frequency: Daily Seatbelt Use: always Sunscreen Use: No Assistive Devices: Cane and Walker Assistive Devices Comment: pt uses a cane to get around at home Allergies Allergies Allergy/AdvReac Type Severity Reaction Status Date / Time No Known Drug Allergies Allergy Mild Unverified 10/24/24 15:05 latex Allergy Unknown Local skin Verified 10/24/24 15:05 irritation Home Meds Home Medications Medication Instructions Recorded Confirmed L.acidophilus,rhamnosus-B.breve-S.thermophilus 1 tab PO QAM 01/20/24 01/09/25 3 billion cell chew tab psyllium 1 packet PO QAM 01/20/24 01/09/25 cholecalciferol (vitamin D3) 25 50 mcg PO DAILY 03/16/24 01/09/25 mcg (1,000 unit) capsule furosemide 20 mg tablet 20 mg PO UD PRN weight gain, 01/09/25 01/09/25 shortness of breath, edema Previous Rx's Medication Instructions Recorded Toileting System #1 ea 01/28/24 levothyroxine 25 mcg tablet 25 mcg PO QAM #90 tabs 02/07/24 trazodone 50 mg tablet 25 mg (1/2 x 50 mg) PO HS #45 tabs 04/17/24 estradiol 0.01% (0.1 mg/gram) See Rx Instructions vaginal 04/19/24 vaginal cream .COMPLEX #42.5 grams spironolactone 25 mg tablet 25 mg PO QAM #90 tabs 07/17/24 carvedilol 12.5 mg tablet 12.5 mg PO BID #180 tabs 07/27/24 alendronate 70 mg tablet 70 mg PO WK Osteopenia #12 tabs 09/08/24 sacubitril 97 mg-valsartan 103 mg 1 tab PO BID #60 tabs 10/15/24 tablet (Entresto) atorvastatin 40 mg tablet 40 mg PO HS #90 tabs 11/20/24 methenamine hippurate 1 gram tablet 1 g PO DAILY #90 tabs 12/15/24 apixaban 5 mg tablet (Eliquis) 5 mg PO BID #60 tabs 01/09/25 Results & Data (ED) Vital Signs Vital Signs - 24 hr 01/09/25 10:53 01/09/25 10:57 01/09/25 11:39 Temperature 36.3 C L Temperature Source Skin Pulse Rate 68 70 Pulse Rate [Left] Pulse Rate from SpO2 Sensor Respiratory Rate 20 17 Respiratory Effort / Characteristics Non-Labored Spontaneous Non-Labored Respiratory Depth Normal Normal Respiratory Pattern Regular Regular Blood Pressure 97/59 L Blood Pressure [Left Radial Artery] Blood Pressure Mean 71 Blood Pressure Mean [Left Radial Artery] Pulse Oximetry 100 Oxygen Delivery Method Room Air Room Air Sepsis Recent Fever Within 48 Hours No Sepsis New/Unexplained Change in Mental Status N/A Sepsis Action Taken by Nursing No Action Required 01/09/25 11:40 01/09/25 11:42 01/09/25 11:43 Temperature Temperature Source Pulse Rate 87 Pulse Rate [Left] 81 Pulse Rate from SpO2 Sensor 98 H Respiratory Rate 25 H 16 Respiratory Effort / Characteristics Respiratory Depth Respiratory Pattern Blood Pressure 110/68 Blood Pressure [Left Radial Artery] 110/68 Blood Pressure Mean 83 Blood Pressure Mean [Left Radial Artery] 82 Pulse Oximetry 92 94 Oxygen Delivery Method Room Air Sepsis Recent Fever Within 48 Hours Sepsis New/Unexplained Change in Mental Status Sepsis Action Taken by Nursing 01/09/25 11:43 01/09/25 11:43 01/09/25 11:49 Temperature Temperature Source Pulse Rate 75 74 Pulse Rate [Left] Pulse Rate from SpO2 Sensor Respiratory Rate 20 Respiratory Effort / Characteristics Respiratory Depth Respiratory Pattern Blood Pressure Blood Pressure [Left Radial Artery] Blood Pressure Mean Blood Pressure Mean [Left Radial Artery] Pulse Oximetry 94 94 Oxygen Delivery Method Room Air Room Air Sepsis Recent Fever Within 48 Hours Sepsis New/Unexplained Change in Mental Status Sepsis Action Taken by Nursing 01/09/25 12:12 01/09/25 12:21 01/09/25 12:30 Temperature Temperature Source Pulse Rate 70 72 75 Pulse Rate [Left] Pulse Rate from SpO2 Sensor 68 70 77 Respiratory Rate 24 27 H 24 Respiratory Effort / Characteristics Respiratory Depth Respiratory Pattern Blood Pressure Blood Pressure [Left Radial Artery] Blood Pressure Mean Blood Pressure Mean [Left Radial Artery] Pulse Oximetry 93 93 94 Oxygen Delivery Method Sepsis Recent Fever Within 48 Hours Sepsis New/Unexplained Change in Mental Status Sepsis Action Taken by Nursing 01/09/25 12:42 01/09/25 12:50 01/09/25 12:54 Temperature Temperature Source Pulse Rate 78 87 Pulse Rate [Left] Pulse Rate from SpO2 Sensor 70 107 H Respiratory Rate 31 H 27 H Respiratory Effort / Characteristics Respiratory Depth Respiratory Pattern Blood Pressure 137/71 Blood Pressure [Left Radial Artery] Blood Pressure Mean 91 Blood Pressure Mean [Left Radial Artery] Pulse Oximetry 95 95 Oxygen Delivery Method Sepsis Recent Fever Within 48 Hours Sepsis New/Unexplained Change in Mental Status Sepsis Action Taken by Nursing 01/09/25 13:00 01/09/25 13:00 01/09/25 13:06 Temperature Temperature Source Pulse Rate 107 H Pulse Rate [Left] Pulse Rate from SpO2 Sensor 111 H Respiratory Rate 20 Respiratory Effort / Characteristics Respiratory Depth Respiratory Pattern Blood Pressure 145/98 H 145/98 H Blood Pressure [Left Radial Artery] Blood Pressure Mean 114 114 Blood Pressure Mean [Left Radial Artery] Pulse Oximetry 96 Oxygen Delivery Method Sepsis Recent Fever Within 48 Hours Sepsis New/Unexplained Change in Mental Status Sepsis Action Taken by Nursing 01/09/25 13:30 01/09/25 13:42 01/09/25 13:54 Temperature Temperature Source Pulse Rate 90 92 H Pulse Rate [Left] Pulse Rate from SpO2 Sensor 95 H 91 H Respiratory Rate 28 H 26 H Respiratory Effort / Characteristics Respiratory Depth Respiratory Pattern Blood Pressure 139/90 Blood Pressure [Left Radial Artery] Blood Pressure Mean 97 Blood Pressure Mean [Left Radial Artery] Pulse Oximetry 97 94 Oxygen Delivery Method Sepsis Recent Fever Within 48 Hours Sepsis New/Unexplained Change in Mental Status Sepsis Action Taken by Nursing 01/09/25 14:00 01/09/25 14:03 01/09/25 14:12 Temperature Temperature Source Pulse Rate 100 H 94 H Pulse Rate [Left] Pulse Rate from SpO2 Sensor 120 H 94 H Respiratory Rate 22 Respiratory Effort / Characteristics Respiratory Depth Respiratory Pattern Blood Pressure 149/96 H Blood Pressure [Left Radial Artery] Blood Pressure Mean 111 Blood Pressure Mean [Left Radial Artery] Pulse Oximetry 97 96 Oxygen Delivery Method Sepsis Recent Fever Within 48 Hours Sepsis New/Unexplained Change in Mental Status Sepsis Action Taken by Nursing 01/09/25 14:24 Temperature Temperature Source Pulse Rate 93 H Pulse Rate [Left] Pulse Rate from SpO2 Sensor 94 H Respiratory Rate Respiratory Effort / Characteristics Respiratory Depth Respiratory Pattern Blood Pressure Blood Pressure [Left Radial Artery] Blood Pressure Mean Blood Pressure Mean [Left Radial Artery] Pulse Oximetry 96 Oxygen Delivery Method Sepsis Recent Fever Within 48 Hours Sepsis New/Unexplained Change in Mental Status Sepsis Action Taken by Nursing Laboratory Data 01/09/25 11:25 01/09/25 11:25 Lab Results 01/09/25 01/09/25 Range/Units 11:21 11:25 WBC 6.39 (4.8-10.8) K/ul RBC 3.93 L (4.20-5.40) M/uL Hgb 11.7 L (12.0-16.0) g/dl Hct 35.9 L (37.0-47.0) % MCV 91.3 (80.0-100.0) fL MCH 29.8 (25.0-34.0) pg MCHC 32.6 (32.0-36.0) g/dL RDW Std Deviation 45.9 (36.4-46.3) fL RDW Coeff of Tonya 13.5 (11.5-14.5) % Plt Count 235 (130-400) K/uL MPV 9.6 (9.4-12.4) fL Immature Gran % (Auto) 0.3 % Neut % (Auto) 62.7 % Lymph % (Auto) 20.5 % [place] % (Auto) 8.8 % Eos % (Auto) 6.4 % Baso % (Auto) 1.3 % Neut # (Auto) 4.01 (1.40-6.50) K/uL Lymph # (Auto) 1.31 (1.20-3.40) K/uL [place] # (Auto) 0.56 (0.11-0.59) K/uL Eos # (Auto) 0.41 (0.00-0.50) K/uL Baso # (Auto) 0.08 (0.00-0.20) K/uL Immature Gran # (Auto) 0.02 (0.01-0.20) K/uL Sodium 135 L (136-145) mmol/L Potassium 4.0 (3.5-5.1) mmol/L Chloride 106 (98-107) mmol/L Carbon Dioxide 25 (21-32) mmol/L Anion Gap 4 (3-11) BUN 25 H (6-23) mg/dl Creatinine 1.02 (0.6-1.2) mg/dl Est Cr Clr Drug Dosing 35.8 ml/min eGFR 52.91 BUN/Creatinine Ratio 24.5 H (10-20) Glucose 155 H (70-99(Fasting)) mg/dl Calcium 10.4 H (8.6-10.3) mg/dl Magnesium 1.7 (1.7-2.4) mg/dl Total Bilirubin 0.9 (0.2-1.0) mg/dl AST 14 (13-39) U/L ALT 14 (7-52) U/L Alkaline Phosphatase 61 (34-104) U/L Troponin I High Sens 7.4 (0-14) pg/ml B-Natriuretic Peptide 1073 H (0-100) pg/ml Total Protein 6.0 (6.0-8.3) gm/dl Albumin 3.7 (3.4-5.0) gm/dl Globulin 2.3 L (2.5-4.0) gm/dl Albumin/Globulin Ratio 1.6 (0.9-2) TSH 2.956 (0.300-4.500) uIu/ml Adenovirus (PCR) Not Detected (NotDetected) B. pertussis DNA (PCR) Not Detected (NotDetected) B.parapertussis DNA PCR Not Detected (NotDetected) C. pneumoniae DNA (PCR) Not Detected (NotDetected) Coronavirus OC43 (PCR) Not Detected (NotDetected) Coronavirus HKU1 (PCR) Not Detected (NotDetected) Coronavirus 229E (PCR) Not Detected (NotDetected) SARS-CoV-2 (PCR) Not Detected (NotDetected) Coronavirus NL63 (PCR) Not Detected (NotDetected) Human Metapneumovir PCR Not Detected (NotDetected) Influenza Type A (PCR) Not Detected (NotDetected) Influenza Type B (PCR) Not Detected (NotDetected) M. pneumoniae (PCR) Not Detected (NotDetected) Parainfluenza 1 (PCR) Not Detected (NotDetected) Parainfluenza 2 (PCR) Not Detected (NotDetected) Parainfluenza 3 (PCR) Not Detected (NotDetected) Parainfluenza 4 (PCR) Not Detected (NotDetected) RSV (PCR) Not Detected (NotDetected) Entero/Rhino (PCR) Not Detected (NotDetected) Administered Medications Discontinued Medications Furosemide (Furosemide 40 Mg/4 Ml Vial) 40 mg IV ONE ONE Stop: 01/09/25 12:33 Last Admin: 01/09/25 12:40 Dose: 40 mg Documented By: LATRELL Metoprolol Tartrate (Metoprolol Tartrate 25 Mg Tab) 25 mg PO NOW STA Stop: 01/09/25 14:19 Last Admin: 01/09/25 15:24 Dose: 25 mg Documented By: WESLEY Imaging Data Radiologist's Impression: Chest X-Ray 01/09/25 10:58 XR chest 1V portable CLINICAL HISTORY: Dyspnea COMPARISON STUDY: 05/26/2022 FINDINGS: There is moderate cardiomegaly with pulmonary vascular congestion. There is mild stranding opacity in the lung bases. There is mild blunting of the costophrenic angles. No pneumothorax. IMPRESSION: 1. CHF. 2. Likely very small bilateral pleural effusions with mild adjacent lung base consolidation. ACT 112: Negative or not required by law. Electronically signed by: Macho Capps M.D. 01/09/2025 11:53 AM Discharge Plan Visit Data Chief Complaint: Respiratory Problems Stated Complaint: SOB,WEAKNESS ED Provider: Jamaal Drew Discharge Problem: Acute exacerbation of CHF (congestive heart failure), Atrial fibrillation, new onset Patient Disposition: Admitted As Inpatient Discharge Instructions Interventions: ED Discharge Assessment Last Done: 01/09/25 16:42
[2025-01-09 11:50] LABS: Basophils # (auto) 0.08 K/uL (0.00-0.20); Basophils % (auto) 1.3 %; Eosinophils # (auto) 0.41 K/uL (0.00-0.50); Eosinophils % (auto) 6.4 %; Hematocrit (blood only) 35.9 % (37.0-47.0); Hemoglobin 11.7 g/dl (12.0-16.0); Immature Granulocytes # (auto) 0.02 K/uL (0.01-0.20); Immature Granulocytes % (auto) 0.3 %; Lymphocytes # (auto) 1.31 K/uL (1.20-3.40); Lymphocytes % (auto) 20.5 %; Mean Corpuscular Hemoglobin 29.8 pg (25.0-34.0); Mean Corpuscular Hgb Conc 32.6 g/dL (32.0-36.0); Mean Corpuscular Volume 91.3 fL (80.0-100.0); Mean Platelet Volume 9.6 fL (9.4-12.4); Monocytes # (auto) 0.56 K/uL (0.11-0.59); Monocytes % (auto) 8.8 %; Neutrophils # (auto) 4.01 K/uL (1.40-6.50); Neutrophils % (auto) 62.7 %; Platelet Count 235 K/uL (130-400); RDW Coefficient of Variation 13.5 % (11.5-14.5); RDW Standard Deviation 45.9 fL (36.4-46.3); Red Blood Count 3.93 M/uL (4.20-5.40); White Blood Count 6.39 K/ul (4.8-10.8)
--- NOTE | 2025-01-09 11:55 | XRay Report ---
XR chest 1V portable CLINICAL HISTORY: Dyspnea COMPARISON STUDY: 05/26/2022 FINDINGS: There is moderate cardiomegaly with pulmonary vascular congestion. There is mild stranding opacity in the lung bases. There is mild blunting of the costophrenic angles. No pneumothorax. IMPRESSION: 1. CHF. 2. Likely very small bilateral pleural effusions with mild adjacent lung base consolidation. ACT 112: Negative or not required by law. Electronically signed by: Macho Capps M.D. 01/09/2025 11:53 AM
[2025-01-09 12:07] LABS: Albumin Globulin Ratio 1.6 (0.9-2); Albumin Level 3.7 gm/dl (3.4-5.0); BUN Creatinine Ratio 24.5 (10-20); Bilirubin,Total 0.9 mg/dl (0.2-1.0); Calcium 10.4 mg/dl (8.6-10.3); Creatinine Clr Calc Pharmacy 35.8 ml/min; Globulin 2.3 gm/dl (2.5-4.0)
[2025-01-09 12:12] LABS: Troponin I High Sensitivity 7.4 pg/ml (0-14)
[2025-01-09] MEDS: FUROSEMIDE 40 MG/4 ML VIAL IV ONE (12:40)
[2025-01-09 12:46] LABS: Adenovirus PCR Not Detected (NotDetected); Bordetella parapertussis PCR Not Detected (NotDetected); Bordetella pertussis PCR Not Detected (NotDetected); Chlamydia pneumoniae PCR Not Detected (NotDetected); Coronavirus 229E PCR Not Detected (NotDetected); Coronavirus CoV-2 (COVID19)PCR Not Detected (NotDetected); Coronavirus HKU1 PCR Not Detected (NotDetected); Coronavirus NL63 PCR Not Detected (NotDetected); Coronavirus OC43PCR Not Detected (NotDetected); Human Metapneumovirus PCR Not Detected (NotDetected); Influenza A PCR Not Detected (NotDetected); Influenza B PCR Not Detected (NotDetected); Mycoplasma pneumoniae PCR Not Detected (NotDetected); Parainfluenza Virus 1 PCR Not Detected (NotDetected); Parainfluenza Virus 2 PCR Not Detected (NotDetected); Parainfluenza Virus 3 PCR Not Detected (NotDetected); Parainfluenza Virus 4 PCR Not Detected (NotDetected); Respiratory Syncytial VirusPCR Not Detected (NotDetected); Rhinovirus/Enterovirus PCR Not Detected (NotDetected)
--- NOTE | 2025-01-09 13:42 | History & Physical Report ---
Date of Service January 09, 2025 Assessment & Plan (1) Atrial fibrillation with RVR: Plan: new onset. no prior history of such. suspect she developed a.fib in the last 7-10 days as she was not in a.fib during her cardiology visit on 12/28/24 and her symptoms started a few days AFTER that visit. she is on chronic coreg 12.5mg BID. will stop this and change to metoprolol as metoprolol should provide better rate control. give metoprolol tartrate 25mg now, then q6h thereafter, with eventual transition to metoprolol succinate. plan Eliquis for anticoagulation - I don't see any contraindications for such at this time. CHADs-VASc is high at 6. will ask [facility] Nurse Navigator to perform del rosario check. will consult Dr Middleton from [facility] Cardiology as he follows her in the outpatient setting (or one of his partners). appreciate their consult & expertise. last echocardiogram was in 2022 - will recheck echo to assess EF & valve function. since we do not know the exact time of a.fib onset cardioversion could only be performed if done after a BARTOLO. thus, plan rate control for now and elective cardioversion could be obtained down the line in 4 weeks if felt necessary by cardiology. (2) Acute on chronic systolic heart failure: Plan: echocardiogram in 2022 showed EF of 45-50%. prior echos (2019, etc) showed EF in the 30s. she had improvement in her EF with disease-modifying medicines including coreg, Entresto, etc. she presents today in decompensated CHF likely as a result of new onset a.fib. although she takes spironolactone daily she is only on lasix prn. prior to my assessment she was given lasix 40mg IV x 1 with brisk diuresis. plan - * beta jyoti as above in #1 * continue lasix 40mg IV daily starting tomorrow AM; this may need adjustment depending on response * echocardiogram * continue Entresto * continue spironolactone * daily weights * AHA diet; restrict fluids to 1800cc/day * cardiology consult with [facility] Cardiology (3) Hypothyroidism (acquired): Plan: check TSH continue synthroid (4) HTN (hypertension): Plan: BPs mildly elevated at time of presentation likely due to volume overload BPs likely will improve with diuresis Can adjust beta jyoti, aldactone, etc as needed for additional BP control Cont Entresto (5) Recurrent UTI: Plan: Just finished a course of macrobid for presumed UTI in late December (culture was negative from 12/28/24) No symptoms of UTI today Cont methenamine 1gm daily for UTI prophylaxis (6) Hx of ulcerative colitis: Plan: last colonoscopy was in April 2022 grossly there were no signs of active UC at that time random colon bx was negative as well no recent symptoms/signs of active UC in remission? (7) Mixed hyperlipidemia: Plan: cont statin (8) Pulmonary hypertension: Plan: history of check PA pressures on echo (9) Prediabetes: Plan: last hemoglobin a1c was 5.7% in fall 2023 repeat another a1c tomorrow BSGs ac/hs and add sliding scale novolog if needed DM diet (10) Hypercalcemia: Plan: intact PTH level in 11/2023 was mildly elevated at 94 this is c/w mild hyperparathyroidism she is not on any medicines that would cause elevated calcium levels previous 25-OH vit D level in 2023 was normal this can simply be followed calcium likely will drop with lasix administration Plan DVT proph - Eliquis for a.fib will serve as DVT prevention daughter updated at bedside extensively in light of weakness will obtain PT/OT evals while here History of Present Illness Chief Complaint: shortness of breath, feeling unwell Primary Care Provider: Loren Flores, DO Very pleasant 89yo female with known history of chronic systolic CHF - EF 45-50% on previous echo, chronic LBBB, hypothyroidism, pulmonary HTN, HTN, prediabetes, and hyperlipidemia who presents with 7-10 days of worsening shortness of breath, dyspnea on exertion, 1 episode of PND, extreme fatigue/weakness, LE edema for 2- 3 days, and abdominal bloating. She was seen on 12/28/24 by her primary stone layer, Dr Edward Middleton, and at that visit was in normal rhythm and her CHF was compensated. Upon presentation to [facility] ER today she was found to be in rapid atrial fibrillation. She was clinically & radiographically in pulmonary edema and was given lasix 40mg IV x 1 by the ER attending. During my assessment she was resting comfortably in bed without any distress. Daughter was at bedside. She had already voided at least 500cc of clear urine. She was not requiring any oxygen at any time during the visit. Of not - she only takes lasix on PRN basis, and has not taken any lasix in about 6 months. Per her records she has never had atrial fibrillation and she does not recall ever having such either. Finally, her daughter mentions she just finished a course of antibiotics (macrobid) for a UTI. Allergies Allergy/AdvReac Type Severity Reaction Status Date / Time No Known Drug Allergies Allergy Mild Unverified 10/24/24 15:05 latex Allergy Unknown Local skin Verified 10/24/24 15:05 irritation Home Medications Medication Instructions Recorded Confirmed Type L.acidophilus,rhamnosus-B.breve-S.thermophilus 1 tab PO QAM 01/20/24 01/09/25 History 3 billion cell chew tab psyllium 1 packet PO QAM 01/20/24 01/09/25 History Toileting System #1 ea 01/28/24 12/28/24 Rx levothyroxine 25 mcg tablet 25 mcg PO QAM #90 tabs 02/07/24 01/09/25 Rx cholecalciferol (vitamin D3) 25 50 mcg PO DAILY 03/16/24 01/09/25 History mcg (1,000 unit) capsule trazodone 50 mg tablet 25 mg (1/2 x 50 mg) PO HS #45 tabs 04/17/24 01/09/25 Rx estradiol 0.01% (0.1 mg/gram) See Rx Instructions vaginal 04/19/24 01/09/25 Rx vaginal cream .COMPLEX #42.5 grams spironolactone 25 mg tablet 25 mg PO QAM #90 tabs 07/17/24 01/09/25 Rx carvedilol 12.5 mg tablet 12.5 mg PO BID #180 tabs 07/27/24 01/09/25 Rx alendronate 70 mg tablet 70 mg PO WK Osteopenia #12 tabs 09/08/24 01/09/25 Rx sacubitril 97 mg-valsartan 103 mg 1 tab PO BID #60 tabs 10/15/24 01/09/25 Rx tablet (Entresto) atorvastatin 40 mg tablet 40 mg PO HS #90 tabs 11/20/24 01/09/25 Rx methenamine hippurate 1 gram tablet 1 g PO DAILY #90 tabs 12/15/24 01/09/25 Rx apixaban 5 mg tablet (Eliquis) 5 mg PO BID #60 tabs 01/09/25 Rx furosemide 20 mg tablet 20 mg PO UD PRN weight gain, 01/09/25 01/09/25 History shortness of breath, edema Past Med/Surg History Problem List (Updated 01/09/25 @ 17:01 by Jamaal Drew DO) Atrial fibrillation, new onset (Acute) Acute exacerbation of CHF (congestive heart failure) (Acute) Pulmonary hypertension Significant pulmonary hypertension suggested in the past and on September 2020 echo. This was done while hypervolemic. RVSP normal on 01/23/2021 echo. Prediabetes Mixed hyperlipidemia Hx of ulcerative colitis Recurrent UTI HTN (hypertension) Hypothyroidism (acquired) Atrial fibrillation with RVR Acute on chronic systolic heart failure Heart failure with improved ejection fraction (HFimpEF) Hard of hearing Vitamin D deficiency Rectocele Urinary frequency Osteopenia Hydronephrosis (Acute) Left ureteral calculus (Acute) Recurrent UTI (Acute) Mitral regurgitation Mitral valve insufficiency (Acute) Microscopic hematuria (Acute) Lumbar stenosis with neurogenic claudication Venous insufficiency Medical History (Updated 01/09/25 @ 17:01 by Jaamal Drew DO) 1st degree AV block Chronic systolic heart failure Follows with [facility]/Dr. Middleton, EF 45-50% Ulcerative colitis Controlled Hypothyroidism Hyperlipidemia Dilated cardiomyopathy Follows with [facility]/Dr. Middleton Benign essential hypertension Incarcerated right inguinal hernia Abnormal CT scan, chest Osteopenia Mitral valve insufficiency Inguinal hernia, right Lung nodule monitored, no biopsy Poor short term memory Left bundle-branch block Chronic, indication for stress test done in 2018 was LBBB* Surgical History H/O right inguinal hernia repair (02/03/24) Right Laparoscopic Inguinal Hernia Repair with Mesh(Right) - Demian Garcia DO Hx of cardiac catheterization "racing heart"- [place], no stents, follows with [facility] Middleton Hx of cystoscopy kidney stones History of total abdominal hysterectomy History of endoscopy History of lumbar fusion Lumbar decompression/fusion History of colonoscopy H/O bilateral cataract extraction S/P hysterectomy History of bladder suspension procedure History of total knee arthroplasty (~2006) Right History of total hip replacement History of ovarian cystectomy Family History (Updated 01/09/25 @ 14:48 by Terry Suero MD) Mother Myocardial infarction presumed; in her 90s Father Myocardial infarction age 68 Daughter Family history of renal cancer Denies family history of Ovarian cancer Prostate cancer Kidney stones Breast cancer Colorectal cancer Social History (Updated 01/09/25 @ 14:48 by Terry Suero MD) Smoking Status: Never smoker Second Hand Exposure: No; Do You Dip or Chew Tobacco: No; Hx Alcohol Use: No Hx Substance Use: No Preferred Language: Croatian Communication Ability: Effective Communication Ability Comment: pt is able to communicate w/o assistive devices Visual Impairment: No Limitations Hearing Ability: Normal Consulting Nurse Required: No Beliefs That Will Affect Care: None marital status: / marital status details: lost spouse in February 2023 Current Living Situation: Alone Current Living Situation Comment: pt lives at home alone, but in close proximity to daughter, neighbors current occupational status: 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[employer]; 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 [employer] How many Children do You have: 4 How many Children do You have Comment: 3 children live close by on the family's property Other Information That Helps Us Care for You: No Feels Safe at Home: Yes Safety Concerns: Feels Safe At This Time Childhood Exposure to Second-Hand Smoke: No Diet: regular Diet Comment: regular caffeine: Yes (coffee x 1 cup daily.) during the past year weight has: remained stable Dental Care, Regularly: Yes Physical Activity Frequency: Daily Seatbelt Use: always Sunscreen Use: No Assistive Devices: Cane and Walker Assistive Devices Comment: pt uses a cane to get around at home Review of Systems Review of Systems: gen - no fevers or chills; +fatigue/weakness; appetite has been off for a few days HENT - chronic rhinitis CV - no chest pain, no palpitations; +edema, +PND Pulm - dyspnea with any activity x 7-10 days; no cough GI - mild bloating; no BRBPR; no nausea/emesis/pain - recent UTI treated musculo - chronic low back pain endo - h/o pre-DM psych - some chronic low-grade depression skin - no rash Physical Exam Physical Exam: gen - laying on gurney, no dyspnea or increased work of breathing; very pleasant eyes - lens implants b/l; PERRL neck - JVD present, about 1/[address] up neck; ?thyroid nodule on left vs lymph node HENT - MMM, no lesions heart - irregularly irregular, s1 s2, 2/6 holosystolic murmur LLSB with radiation to axillae lungs - mild b/l basilar rales, CTA apices; no wheeze; no increased work of breathing abd - soft NT ND BS+; +hepatojugular reflex extremities - 1+ pitting edema of feet and to mid-calvo vascular - pulses b/l feet 2+ neuro - strength 5/5 x 4 exts; DTRs 2+ b/l skin - no rash psych - tearful at times, a/o x 3 Results & Data Results & Data Vital Signs (Past 12 Hours) Vital Signs Temp Pulse Pulse Resp BP BP Pulse Ox 01/09/25 13:06 107 H 20 96 01/09/25 13:00 145/98 H 01/09/25 13:00 145/98 H 01/09/25 12:54 87 27 H 95 01/09/25 12:50 137/71 01/09/25 12:42 78 31 H 95 01/09/25 12:30 75 24 94 01/09/25 12:21 72 27 H 93 01/09/25 12:12 70 24 93 01/09/25 11:49 74 01/09/25 11:43 75 20 94 01/09/25 11:43 94 01/09/25 11:43 81 16 110/68 94 01/09/25 11:42 87 25 H 92 01/09/25 11:40 110/68 01/09/25 11:39 70 17 01/09/25 10:57 01/09/25 10:53 36.3 C L 68 20 97/59 L 100 O2 Del Method 01/09/25 13:06 01/09/25 13:00 01/09/25 13:00 01/09/25 12:54 01/09/25 12:50 01/09/25 12:42 01/09/25 12:30 01/09/25 12:21 01/09/25 12:12 01/09/25 11:49 01/09/25 11:43 Room Air 01/09/25 11:43 Room Air 01/09/25 11:43 Room Air 01/09/25 11:42 01/09/25 11:40 01/09/25 11:39 01/09/25 10:57 Room Air 01/09/25 10:53 Room Air Laboratory Results Laboratory Results - last 24 hr 01/09/25 01/09/25 11:21 11:25 WBC 6.39 RBC 3.93 L Hgb 11.7 L Hct 35.9 L MCV 91.3 MCH 29.8 MCHC 32.6 RDW Std Deviation 45.9 RDW Coeff of Tonya 13.5 Plt Count 235 MPV 9.6 Immature Gran % (Auto) 0.3 Neut % (Auto) 62.7 Lymph % (Auto) 20.5 Pershing % (Auto) 8.8 Eos % (Auto) 6.4 Baso % (Auto) 1.3 Neut # (Auto) 4.01 Lymph # (Auto) 1.31 Pershing # (Auto) 0.56 Eos # (Auto) 0.41 Baso # (Auto) 0.08 Immature Gran # (Auto) 0.02 Sodium 135 L Potassium 4.0 Chloride 106 Carbon Dioxide 25 Anion Gap 4 BUN 25 H Creatinine 1.02 Est Cr Clr Drug Dosing 35.8 eGFR 52.91 BUN/Creatinine Ratio 24.5 H Glucose 155 H Calcium 10.4 H Total Bilirubin 0.9 AST 14 ALT 14 Alkaline Phosphatase 61 Troponin I High Sens 7.4 B-Natriuretic Peptide 1073 H Total Protein 6.0 Albumin 3.7 Globulin 2.3 L Albumin/Globulin Ratio 1.6 TSH Pending Adenovirus (PCR) Not Detected B. pertussis DNA (PCR) Not Detected B.parapertussis DNA PCR Not Detected C. pneumoniae DNA (PCR) Not Detected Coronavirus OC43 (PCR) Not Detected Coronavirus HKU1 (PCR) Not Detected Coronavirus 229E (PCR) Not Detected SARS-CoV-2 (PCR) Not Detected Coronavirus NL63 (PCR) Not Detected Human Metapneumovir PCR Not Detected Influenza Type A (PCR) Not Detected Influenza Type B (PCR) Not Detected M. pneumoniae (PCR) Not Detected Parainfluenza 1 (PCR) Not Detected Parainfluenza 2 (PCR) Not Detected Parainfluenza 3 (PCR) Not Detected Parainfluenza 4 (PCR) Not Detected RSV (PCR) Not Detected Entero/Rhino (PCR) Not Detected Diagnostic Findings Chest X-Ray 01/09/25 10:58 XR chest 1V portable CLINICAL HISTORY: Dyspnea COMPARISON STUDY: 05/26/2022 FINDINGS: There is moderate cardiomegaly with pulmonary vascular congestion. There is mild stranding opacity in the lung bases. There is mild blunting of the costophrenic angles. No pneumothorax. IMPRESSION: 1. CHF. 2. Likely very small bilateral pleural effusions with mild adjacent lung base consolidation. ACT 112: Negative or not required by law. Electronically signed by: Macho Capps M.D. 01/09/2025 11:53 AM EKG - my reading - a.fib with RVR, LBBB Code Status & VTE Plan Code Status partial code - wants chest compressions & shocks but no intubation/mech ventilation PG Care Time/CCT Total # of Minutes Spent Total Time Spent with Patient: Total time spent is greater than 50% in coordination of care (as documented) at patient's floor/unit and/or counseling patient: Coding Level of Care Code 13080 INT INP/OBS CARE 3/75MIN Diagnoses Atrial fibrillation with RVR I48.91 Acute on chronic systolic heart failure I50.23 Hypothyroidism (acquired) E03.9 HTN (hypertension) I10 Recurrent UTI N39.0 Hx of ulcerative colitis Z87.19 Mixed hyperlipidemia E78.2 Pulmonary hypertension I27.20 Prediabetes R73.03 Hypercalcemia E83.52
[2025-01-09 15:11] LABS: Thyroid Stimulating Hormone 2.956 uIu/ml (0.300-4.500)
[2025-01-09] MEDS: METOPROLOL TARTRATE 25 MG TAB PO STA (15:24)
[2025-01-09 15:38] LABS: Magnesium 1.7 mg/dl (1.7-2.4)
[2025-01-09 15:40] LABS: Appearance Urine Clear (Clear); Bilirubin Urine Negative (Negative); Blood Urine Negative (Negative); Color Urine Yellow; Glucose Urine UA Negative (Negative); Ketones Urine Negative (Negative); Leukocyte Esterase Urine Negative (Negative); Nitrite Urine Negative (Negative); Protein Urine Negative (Negative); Specific Gravity Urine 1.007 (1.000-1.030); Urobilinogen Urine Negative (Negative); pH Urine 6.5 (4.5-7.5)
[2025-01-09] MEDS ORDERED: ONDANSETRON INJ 2 MG/ML 2 ML VIAL IV PRN (16:11)
[2025-01-09] MEDS: traZODone HCL 50 MG TAB PO SCH (20:55)
[2025-01-09] MEDS: METOPROLOL TARTRATE 25 MG TAB PO SCH (20:55)
[2025-01-09] MEDS: ATORVASTATIN 40 MG TAB PO SCH (20:56)
[2025-01-09] MEDS: VALSARTAN/SACUBITRIL 103/97MG TAB PO SCH (20:56)
[2025-01-10 07:29] LABS: BUN Creatinine Ratio 23.2 (10-20); Calcium 10.5 mg/dl (8.6-10.3); Creatinine Clr Calc Pharmacy 38.9 ml/min; Magnesium 1.7 mg/dl (1.7-2.4); Potassium 4.3 mmol/L (3.5-5.1)
[2025-01-10 07:48] LABS: Folate (Folic Acid),Ser orPlas 20.6 ng/ml (>5.38)
[2025-01-10 07:49] LABS: Ferritin 88.6 ng/ml (8-388)
[2025-01-10] MEDS: PSYLLIUM or GUAR GUM FIBER 4GM PACKET PO SCH (08:23)
[2025-01-10] MEDS: CHOLECALCIFEROL 25 MCG (1000 UNITS) TAB PO SCH (08:24)
[2025-01-10] MEDS: FUROSEMIDE 40 MG/4 ML VIAL IV SCH (08:24)
[2025-01-10] MEDS: METHENAMINE HIPPURATE 1 GM TAB PO SCH (08:24)
[2025-01-10] MEDS: LEVOTHYROXINE SODIUM 25 MCG TABLET PO SCH (08:24)
[2025-01-10] MEDS: SPIRONOLACTONE 25 MG TAB PO SCH (08:24)
[2025-01-10] MEDS: APIXABAN 5 MG TABLET PO SCH (08:24)
[2025-01-10 09:14] LABS: T4 Free Thyroxine 0.96 ng/dl (0.61-1.60)
[2025-01-10 10:14] LABS: Estimated Average Glucose 117 mg/dl; Hemoglobin A1C 5.7 % (4.5-5.6)
--- NOTE | 2025-01-10 13:22 | Hospitalist Progress Note ---
Date of Service January 10, 2025 Assessment & Plan (1) Atrial fibrillation with RVR: Plan: new onset. Telemetry. Thyroid profile is normal. Coreg has been switched to metoprolol. Cardiology consultation requested and pending. Telemetry. Cardiac echo report is pending (2) Acute on chronic systolic heart failure: Plan: echocardiogram in 2022 showed EF of 45-50%. Repeat cardiac echo report is pending. Continue parenteral Lasix diuresis. Brisk diuresis so far. Repeat chest x-ray again tomorrowJanuary 11. (3) Hypothyroidism (acquired): Plan: Stable. Free T3 and free T4 levels are normal. Continue current thyroid replacement (4) HTN (hypertension): Plan: Stable. Continue current medical management (5) Mixed hyperlipidemia: Plan: Stable. Continue statin therapy (6) Pulmonary hypertension: Plan: By history. Await cardiac echo results Plan OT and PT assessments requested and pending. This will determine disposition at the time of discharge Admission and Anticipated Discharge Date Admission Date: January 09, 2025 Subjective Alert and oriented. No distress. Good diuretic response with parenteral Lasix. Coreg has been switched to metoprolol and Eliquis has been added. She presented with new onset atrial fibrillation and RVR. Ventricular rate is still somewhat high. Cardiac echo report is pending. Cardiology consultation requested and pending. Repeat chest x-ray again tomorrowJanuary 11 Review of Systems 2 Review of Systems: Constitutionalno fever or chills ENTno blurred vision, no double vision, no epistaxis, no sore throat Respiratoryno cough, no wheezing. She does have dyspnea on exertion Cardiac no chest pain, no syncope. She noticed palpitations with onset of atrial fibrillation Kari nausea, vomiting, diarrhea, melena, hematochezia GUno urinary retention, no urinary incontinence, no dysuria, no hematuria Musculoskeletalno joint pain, no muscle tenderness. Mild edema bilateral lower extremities below the knees Skinno bruising, no rashes, no pruritus Neurono isolated weakness, no paresthesia Psychno depression, no anxiety Physical Exam 2 Physical Exam: General-alert and oriented x3, no fever, no chills HEENT-head atraumatic and normocephalic, pupils equal and reactive to light, extraocular muscles intact Neck-no lymphadenopathy or thyromegaly, trachea midline Chest-faint bibasilar inspiratory rales. No dullness to percussion. No wheezing Cardiac-tachycardic irregular rate and rhythm. Normal S1 and S2 Abdomen-normal bowel sounds, no hepatosplenomegaly Extremities-no cyanosis, clubbing. 1+ pitting edema bilateral lower extremities below the knees Neuro-cranial nerves II through XII intact, motor and sensory function within normal limits, strength symmetrical, no focal deficits Psych-normal affect, normal mood Results & Data Results & Data Vital Signs (Past 12 Hours) Vital Signs Temp Pulse Pulse Resp BP Pulse Ox O2 Del Method 01/10/25 12:00 125 H 01/10/25 11:08 36.3 C L 74 18 102/62 93 Room Air 01/10/25 08:45 Room Air 01/10/25 07:20 36.3 C L 78 18 120/64 93 Room Air 01/10/25 07:10 70 01/10/25 02:34 36.4 C L 74 20 127/69 93 Room Air Laboratory Results 01/09/25 11:25 01/10/25 06:42 PG Care Time/CCT Total # of Minutes Spent Total Time Spent with Patient: Total time spent is greater than 50% in coordination of care (as documented) at patient's floor/unit and/or counseling patient: Coding Level of Care Code 24572 SUB INP/OBS CARE 3/50MIN Diagnoses Atrial fibrillation with RVR I48.91 Acute on chronic systolic heart failure I50.23 Hypothyroidism (acquired) E03.9 HTN (hypertension) I10 Mixed hyperlipidemia E78.2 Pulmonary hypertension I27.20
--- NOTE | 2025-01-10 13:31 | Cardiology Consultation ---
Date of Consultation January 10, 2025 Assessment & Plan (1) Acute exacerbation of CHF (congestive heart failure): (2) Atrial fibrillation, new onset: (3) Nonischemic cardiomyopathy: (4) CAD (coronary artery disease): (5) Left bundle-branch block: Plan 1. Congestive heart failure: She presents in congestive heart failure with evidence of fluid overload including edema and chest x-ray findings, her weight is up significantly compared to last fall. She does not seem to have changed her diet, including her fluid intake, but she is in asymptomatic atrial fibrillation this visit. Her left ventricular function by echocardiogram does not appear to be significantly worsened. It is certainly possible that her congestive heart failure was brought on by development of atrial fibrillation, I cannot pinpoint when the atrial fibrillation started. Given that her ejection fraction does not seem to have changed much I would continue her current medical regimen for heart failure and increase her diuretics. 2. Atrial fibrillation: This is newly diagnosed, I cannot be certain when it started but may well be related to her development of congestive heart failure. At this point we do not know if it is paroxysmal or persistent, although I suspect the latter. Since we cannot tell when it started we should not consider cardioversion, we could possibly do it with a BARTOLO but I do not think it is necessary as long as we can control her heart failure. I would recommend antic oagulation for the next 3 to 4 weeks with plans to cardiovert at that time if she remains in it. 3. Cardiomyopathy: She has a longstanding cardiomyopathy and her ejection fraction has gradually improved, and nearly normalized. Her ejection fraction appears similar on my review of her echo to what it had been last year. Her left bundle branch block may contribute to her cardiomyopathy, but with no decrement in ejection fraction I do not think we should consider biventricular pacing although that might be a consideration for the future. 4. Coronary disease: She does not have evidence of progressive coronary disease or ischemia as a cause of her presentation. I would not pursue evaluation of this. 5. Left bundle branch block: This has been present for many years and may be in part the reason for her left ventricular dysfunction. Still with stabilization of her left ventricular function on medical therapy I would not consider biventricular pacing but that is a consideration for the future. History of Present Illness Reason for Consultation: CHF, atrial fibrillation Attending Physician: Tiago Mcknight MD History of Present Illness This is an 89-year-old woman who is followed by Dr. Middleton in the office and has a history of a dilated nonischemic cardiomyopathy, chronic congestive heart failure and nonobstructive coronary artery disease. She also has dyslipidemia, hypertension and a left bundle branch block pattern. She has mitral regurgitation. Catheterization 2000 at [facility] in [place] showed mild atherosclerotic coronary artery disease. An echocardiogram February 15, 2017 at [facility] showed an ejection fraction of 35% with moderate mitral regurgitation, subsequently her left ventricular ejection fraction gradually improved and on March 15, 2023 (which I believe was her last echocardiogram) showed normal left ventricular size with ejection fraction 45 to 50% with global hypokinesis. She presented to the emergency room on January 09, 2025 with shortness of breath which has been occurring for several weeks. She was observed to be in atrial fibrillation on presentation, her BNP was elevated to 1073 and high-sensitivity troponin was normal. A chest x-ray on presentation was felt to show congestive heart failure. Her weight is not much different than it was in December 2024, however it is significantly elevated compared to last fall, about 10 kg. I am not sure how long she has had a left bundle branch pattern, the earliest electrocardiogram we have to review is from September 15, 2020, however that electrocardiogram is compared to November 07, 2014 and the report report does not note new onset of left bundle branch block therefore is probably present before that. Her QRS duration was 166 ms in 2019 and is measured at 154 ms today. Her prior electrocardiogram from about a year ago shows sinus rhythm as do all of the preceding electrocardiograms that I have to review. Her electrocardiogram on this presentation on January 09, 2025 however shows atrial fibrillation at a controlled heart rate of 72 bpm. As an outpatient she is taking carvedilol 12.5 mg twice a day and Entresto 97/103 mg twice daily as well as spironolactone 25 mg daily for her cardi omyopathy. She does take furosemide as needed. She was not on an anticoagulant at home as far as I can tell (although it is listed on her home medications and this admission chart) and now takes Eliquis 5 mg twice a day. I met the patient in her room with her daughter. It seems that she has been having progressive leg edema and shortness of breath for at least several weeks, it is hard for me to get a specific timeframe. She does not seem to have a change in her diet, including excess fluid or salt, to explain weight gain. She does not have exertional chest discomfort and has not had the sensation of palpitations, possibly because her heart rate is well-controlled. Allergies Allergy/AdvReac Type Severity Reaction Status Date / Time No Known Drug Allergies Allergy Mild Unverified 10/24/24 15:05 latex Allergy Unknown Local skin Verified 10/24/24 15:05 irritation Home Medications Medication Instructions Recorded Confirmed Type L.acidophilus,rhamnosus-B.breve-S.thermophilus 1 tab PO QAM 01/20/24 01/09/25 History 3 billion cell chew tab psyllium 1 packet PO QAM 01/20/24 01/09/25 History Toileting System #1 ea 01/28/24 12/28/24 Rx levothyroxine 25 mcg tablet 25 mcg PO QAM #90 tabs 02/07/24 01/09/25 Rx cholecalciferol (vitamin D3) 25 50 mcg PO DAILY 03/16/24 01/09/25 History mcg (1,000 unit) capsule trazodone 50 mg tablet 25 mg (1/2 x 50 mg) PO HS #45 tabs 04/17/24 01/09/25 Rx estradiol 0.01% (0.1 mg/gram) See Rx Instructions vaginal 04/19/24 01/09/25 Rx vaginal cream .COMPLEX #42.5 grams spironolactone 25 mg tablet 25 mg PO QAM #90 tabs 07/17/24 01/09/25 Rx carvedilol 12.5 mg tablet 12.5 mg PO BID #180 tabs 07/27/24 01/09/25 Rx alendronate 70 mg tablet 70 mg PO WK Osteopenia #12 tabs 09/08/24 01/09/25 Rx sacubitril 97 mg-valsartan 103 mg 1 tab PO BID #60 tabs 10/15/24 01/09/25 Rx tablet (Entresto) atorvastatin 40 mg tablet 40 mg PO HS #90 tabs 11/20/24 01/09/25 Rx methenamine hippurate 1 gram tablet 1 g PO DAILY #90 tabs 12/15/24 01/09/25 Rx apixaban 5 mg tablet (Eliquis) 5 mg PO BID #60 tabs 01/09/25 Rx furosemide 20 mg tablet 20 mg PO UD PRN weight gain, 01/09/25 01/09/25 History shortness of breath, edema Patient History Medical History 1st degree AV block Chronic systolic heart failure Follows with [facility]/Dr. Middleton, EF 45-50% Ulcerative colitis Controlled Hypothyroidism Hyperlipidemia Dilated cardiomyopathy Follows with [facility]/Dr. Middleton Benign essential hypertension Incarcerated right inguinal hernia Abnormal CT scan, chest Osteopenia Mitral valve insufficiency Inguinal hernia, right Lung nodule monitored, no biopsy Poor short term memory Surgical History H/O right inguinal hernia repair (02/03/24) Right Laparoscopic Inguinal Hernia Repair with Mesh(Right) - Demian Garcia, Hx of cardiac catheterization "racing heart"- [place], no stents, follows with [facility] Middleton Hx of cystoscopy kidney stones History of total abdominal hysterectomy History of endoscopy History of lumbar fusion Lumbar decompression/fusion History of colonoscopy H/O bilateral cataract extraction S/P hysterectomy History of bladder suspension procedure History of total knee arthroplasty (~2006) Right History of total hip replacement History of ovarian cystectomy Family History Mother Myocardial infarction presumed; in her 90s Father Myocardial infarction age 68 Daughter Family history of renal cancer Denies family history of Ovarian cancer Prostate cancer Kidney stones Breast cancer Colorectal cancer Social History Smoking Status: Never smoker Second Hand Exposure: No; Do You Dip or Chew Tobacco: No; Hx Alcohol Use: No Hx Substance Use: No Preferred Language: Croatian Communication Ability: Effective Communication Ability Comment: pt is able to communicate w/o assistive devices Visual Impairment: No Limitations Hearing Ability: Normal Traffic Signal Technician Required: No Beliefs That Will Affect Care: None marital status: / marital status details: lost spouse in February 2023 Current Living Situation: Alone Current Living Situation Comment: pt lives at home alone, but in close proximity to daughter, neighbors current occupational status: 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[employer]; 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 How many Children do You have: 4 How many Children do You have Comment: 3 children live close by on the family's property Other Information That Helps Us Care for You: No Feels Safe at Home: Yes Safety Concerns: Feels Safe At This Time Childhood Exposure to Second-Hand Smoke: No Diet: regular Diet Comment: regular caffeine: Yes (coffee x 1 cup daily.) during the past year weight has: remained stable Dental Care, Regularly: Yes Physical Activity Frequency: Daily Seatbelt Use: always Sunscreen Use: No Assistive Devices: Cane and Walker Assistive Devices Comment: pt uses a cane to get around at home Review of Systems Review of Systems: All systems reviewed & are unremarkable except as noted in HPI & below Physical Exam Physical Exam: Constitutional: Alert, cooperative and in no distress. She is sitting at her bedside. HEENT: Unremarkable Neck: No jugular venous distention, carotid pulses are irregular but otherwise normal and equal bilaterally without bruits. Pulmonary: Clear to auscultation bilaterally. Cardiac: Irregular rhythm with no murmur, gallop or rub. Abdomen: Soft, nontender with normal bowel sounds. Extremities: +2 bilateral pretibial edema. Neurologic: No focal findings. Skin: No rash, ecchymoses or petechiae. Results & Data Vital Signs (Past 12 Hours) Vital Signs Temp Pulse Pulse Resp BP Pulse Ox O2 Del Method 01/10/25 12:00 125 H 01/10/25 11:08 36.3 C L 74 18 102/62 93 Room Air 01/10/25 08:45 Room Air 01/10/25 07:20 36.3 C L 78 18 120/64 93 Room Air 01/10/25 07:10 70 01/10/25 02:34 36.4 C L 74 20 127/69 93 Room Air Laboratory Results Comprehensive Metabolic Panel 01/10/25 Range/Units 06:42 Sodium 140 (136-145) mmol/L Potassium 4.3 (3.5-5.1) mmol/L Chloride 106 (98-107) mmol/L Carbon Dioxide 30 (21-32) mmol/L BUN 22 (6-23) mg/dl Creatinine 0.95 (0.6-1.2) mg/dl Glucose 91 (70-99(Fasting)) mg/dl Calcium 10.5 H (8.6-10.3) mg/dl Intake and Output 01/09/25 01/10/25 01/10/25 22:59 06:59 14:59 Output Total 650 / 1450 Balance -650 / -1450 Output: Urine 300 / 1100 Urine Amount (Catheter) 350 / 350 External 350 / 350 Other: Weight 72.3 kg 72 kg Weight Measurement Method Stated by Patient Built in Bedscale Diagnostic Findings Telemetry: Atrial fibrillation, heart rate typically around 75 bpm but ranges from 70-140 (with activity). Echocardiogram: Her echocardiogram is not formally read at this point, however I reviewed it and I think her ejection fraction is in the 45% range. Her left bundle branch block causes dyssynchrony and makes evaluation a little bit difficult but it is not evidently significantly worse than before. PG Care Time/CCT Total # of Minutes Spent Total Time Spent with Patient: Total time spent is greater than 50% in coordination of care (as documented) at patient's floor/unit and/or counseling patient: Coding Level of Care Code 76072 INT INP/OBS CARE 75MIN Diagnoses Acute exacerbation of CHF (congestive heart failure) I50.9 Atrial fibrillation, new onset I48.91 Nonischemic cardiomyopathy I42.8 CAD (coronary artery disease) I25.10 Left bundle-branch block I44.7
[2025-01-10] MEDS: ACETAMINOPHEN 325 MG TAB PO PRN (16:02)
--- NOTE | 2025-01-10 17:30 | XCELERA ---
[id number]
--- NOTE | 2025-01-10 21:04 | Electrocardiogram Report ---
Test Reason : Blood Pressure : */* mmHG Vent. Rate : 72 BPM Atrial Rate : * BPM P-R Int : * ms QRS Dur : 154 ms QT Int : 416 ms P-R-T Axes : * -41 132 degrees QTcB Int : 455 ms Atrial fibrillation Left axis deviation Left bundle branch block Abnormal ECG When compared with ECG of 18-Jan-2024 13:24, Atrial fibrillation has replaced Sinus rhythm Confirmed by Yomi Mckoy ([id number]) on 01/10/2025 9:04:22 PM Referred By: Confirmed By: Yomi Mckoy
[2025-01-11 03:08] VITALS: RESP 18
[2025-01-11 07:13] LABS: BUN Creatinine Ratio 26.4 (10-20); Calcium 10.4 mg/dl (8.6-10.3); Creatinine Clr Calc Pharmacy 33.7 ml/min
--- NOTE | 2025-01-11 07:36 | XRay Report ---
EXAM: XR chest 1V portable CLINICAL HISTORY: CHF TECHNIQUE: An X-ray image of the chest is obtained in AP projection. COMPARISON: prior 01/09/2025. FINDINGS: Pulmonary Parenchyma: Prominent bronchovascular markings, with anuja bronchial cuff and haziness, possibly anuja hilar consolidation, likely congestion/edema. There is blunting of both costophrenci angles, more left, suggesting bilateral pleural effusion. Heart and Mediastinum: Cardiomegaly. No mediastinal widening or masses. No hilar or mediastinal lymphadenopathy. Bony Thorax: Bony thorax appears intact without fractures or deformities. Soft Tissues: Soft tissues overlying the chest wall are unremarkable. IMPRESSION: 1. Stable Cardiomegaly. 2. Mild progressive Prominent central bronchovascular markings, with anuja bronchial cuff and haziness, possibly anuja hilar consolidation, likely congestion/edema. 3. There is mild bilateral effusion. Stable. Electronically signed by Aaron Alexis 01-11-2025 07:36 AM
[2025-01-11] MEDS: METOPROLOL TARTRATE 50 MG TAB PO SCH (09:05)
[2025-01-11 11:08] VITALS: PULSE 79; TEMP 98.1; O2SAT 94
--- NOTE | 2025-01-11 12:55 | Discharge Summary ---
Discharge Summary Date of Service January 11, 2025 Principal Dx & Hospital Course #1 = Principal Diagnosis (1) Atrial fibrillation with RVR: new onset. Telemetry. Thyroid profile is normal. Coreg has been switched to metoprolol. Telemetry apparently calculated a low heart rate based on 1 isolated prolonged R to R interval which caused the resident last night to place the metoprolol on hold. I reviewed her telemetry this morning and she does not have any sustained bradycardia and metoprolol has been resumed. Cardiac echo reveals moderate left ventricular hypertrophy with ejection fraction around 40% to 45% with moderate MR. (2) Acute on chronic systolic heart failure: echocardiogram in 2022 showed EF of 45-50%. Repeat cardiac echo this admission reveals ejection fraction in the 40 to 45% range with moderate MR. Treated while hospitalized with parenteral Lasix diuresis. This resulted in brisk diuresis and resolution of CHF. She will continue with oral Lasix 40 mg once daily taken in the early afternoon, at the time of discharge. Chest x-ray done today, January 11, looks much better. She is on room air. (3) Hypothyroidism (acquired): Stable. Free T3 and free T4 levels are normal. Continue current thyroid replacement (4) HTN (hypertension): Stable. Continue current medical management (5) Mixed hyperlipidemia: Stable. Continue statin therapy (6) Pulmonary hypertension: By history. No intervention necessary at this time Plan Home today, January 11, with home health services. Follow-up with PCP and pharmacovigilance safety expert as soon as possible Admission HPI Per Admitting Provider Very pleasant 89yo female with known history of chronic systolic CHF - EF 45-50% on previous echo, chronic LBBB, hypothyroidism, pulmonary HTN, HTN, prediabetes, and hyperlipidemia who presents with 7-10 days of worsening shortness of breath, dyspnea on exertion, 1 episode of PND, extreme fatigue/weakness, LE edema for 2- 3 days, and abdominal bloating. She was seen on 12/28/24 by her primary ca rdiologist, Dr Edward Middleton, and at that visit was in normal rhythm and her CHF was compensated. Upon presentation to [facility] ER today she was found to be in rapid atrial fibrillation. She was clinically & radiographically in pulmonary edema and was given lasix 40mg IV x 1 by the ER attending. During my assessment she was resting comfortably in bed without any distress. Daughter was at bedside. She had already voided at least 500cc of clear urine. She was not requiring any oxygen at any time during the visit. Of not - she only takes lasix on PRN basis, and has not taken any lasix in about 6 months. Per her records she has never had atrial fibrillation and she does not recall ever having such either. Finally, her daughter mentions she just finished a course of antibiotics (macrobid) for a UTI. Discharge Exam General-alert and oriented x3, no fever, no chills HEENT-head atraumatic and normocephalic, pupils equal and reactive to light, extraocular muscles intact Neck-no lymphadenopathy or thyromegaly, trachea midline Chest-faint bibasilar inspiratory rales. No dullness to percussion. No wheezing Cardiac-tachycardic irregular rate and rhythm. Normal S1 and S2 Abdomen-normal bowel sounds, no hepatosplenomegaly Extremities-no cyanosis, clubbing. 1+ pitting edema bilateral lower extremities below the knees Neuro-cranial nerves II through XII intact, motor and sensory function within normal limits, strength symmetrical, no focal deficits Psych-normal affect, normal mood Discharge Plan Discharge Items Patient Disposition: Home - Home Health Services Reason For Visit: NEW ONSET AFIB WITH RVR; ACUTE/CHRONIC SYSTOLIC CH Discharge Diagnosis: New onset atrial fibrillation with rapid ventricular rate, acute on chronic systolic CHF Activity: Resume your previous activity Non-emergency contact: Primary Care Provider and Reordering Clerk Call non-emergency contact if: you have any medication questions and your symptoms worsen Follow-up/Referrals: Loren Flores DO [Primary Care Provider] - Diet: Regular and Heart Healthy Addtl Attending Provider Instructions: Coreg has been switched to metoprolol 50 mg twice daily. Take Lasix 40 mg daily in the early afternoon after lunch. Take Eliquis 5 mg twice daily as a blood thinner. Prescriptions have been sent to [facility] pharmacy in [place]. All other medications remain the same. Pending Studies at Discharge: No Stand-Alone Forms: My [facility] [employer], Smoking Cessation Medications and SC Order Prescriptions: New Eliquis 5 mg tablet 5 mg PO BID Qty: 60 5RF Eliquis 5 mg Tablet 5 mg PO BID Qty: 60 0RF metoprolol tartrate 50 mg Tablet 50 mg PO BID Qty: 6 0RF furosemide [Lasix] 40 mg tablet 40 mg PO DAILY Qty: 30 0RF Continued (DME) Toileting System Misc See Rx Instructions .Route Qty: 1 0RF Rx Instructions: Raised Toileting System As directed levothyroxine 25 mcg tablet 25 mcg PO QAM Qty: 90 3RF trazodone 50 mg tablet 25 mg PO HS Qty: 45 4RF spironolactone 25 mg tablet 25 mg PO QAM Qty: 90 2RF alendronate 70 mg tablet 70 mg PO WK MDD 70mg weekly Qty: 12 1RF Entresto 97-103 mg tablet 1 tab PO BID Qty: 60 5RF atorvastatin 40 mg tablet 40 mg PO HS Qty: 90 1RF methenamine hippurate 1 gram tablet 1 g PO DAILY Qty: 90 3RF Rx Instructions: Take one tablet at bedtime. cholecalciferol (vitamin D3) 25 mcg (1,000 unit) capsule 50 mcg PO DAILY Rx Instructions: otc unable to verify estradiol 0.01 % (0.1 mg/gram) cream See Rx Instructions vaginal .COMPLEX Qty: 42.5 2RF Rx Instructions: Apply pea-size amount to vaginal opening vaginal daily x2 weeks, then twice weekly thereafter. psyllium Packet 1 packet PO QAM Rx Instructions: otc unable to verify mix into at least 8 oz of water or juice before administering L.acid-L.rham-B.breve-S.therm 3 billion cell Tablet,Chewable 1 tab PO QAM Rx Instructions: otc unable to verify Discontinued carvedilol 12.5 mg tablet 12.5 mg PO BID Qty: 180 3RF furosemide 20 mg tablet 20 mg PO UD PRN (Reason: weight gain, shortness of breath, edema) Rx Instructions: 40 mg po daily prn. last filled 02/23 30 day supply Discharge Orders: Discharge Order- CHF (Routine); Ordered 01/11/25 Ordered By: Tiago Mcknight Admission Data Admit Date/Time: 01/09/25 14:32 Attending Provider: Tiago Mcknight Admit Provider: Terry Suero Primary Care Provider: Loren Flores Other Providers: Terry Suero; Edward Middleton; Sammy Kendrick [facility] Hospital Stay Data Consultations 01/09/25 13:26 ED Decision to Admit Stat 01/09/25 16:11 Consult Cardiology Routine Pending Results Patient Have Any Pending Studies at Discharge: No Discharge Instructions Given to Patient (Per Discharging Provider) Coreg has been switched to metoprolol 50 mg twice daily. Take Lasix 40 mg daily in the early afternoon after lunch. Take Eliquis 5 mg twice daily as a blood thinner. Prescriptions have been sent to [facility] pharmacy in [place]. All other medications remain the same. Total Time Total Time Spent Total Time Spent (In Minutes): 45 minutes Coding Level of Care Code 47881 INP/OBS DISCH >30 MIN Diagnoses Atrial fibrillation with RVR I48.91 Acute on chronic systolic heart failure I50.23 Hypothyroidism (acquired) E03.9 HTN (hypertension) I10 Mixed hyperlipidemia E78.2 Pulmonary hypertension I27.20
[2025-01-11 13:10] VITALS: BP 116/65
== END 2025-01-11 14:52 | disposition home health service (06) | DRG 308 ==
LOC: ED 10:44 → EDINP 14:32 → SUATTDRO 14:32 → INTOOBSV 14:32 → 2S 15:57